=== PATIENT | male | born 1955 | race Caucasian/White ===

== ENCOUNTER → 2018-06-29 10:35 | Outpatient (CLI) | payer OTHER, SELFPAY ==
--- NOTE | 2014-05-09 | IMM_PTH ---
PATIENT: OSWALD GARCIA Sr. LOC: [facility] U#:[id number] AGE/SX: 69/M ROOM: RE06/29/[address]: Dr. Fernando Pandey DO : 1955 BED: DIS: SPEC #: [id number] RECD: 06/29/18 10:39 STATUS: NADER COLTEN #: [id number] DILMA: 05/09/14 00:[address]: Fernando Pandey DEPT: IMMUNOHISTOCHEMISTRY RECD BY: Annemarie Mata Tissues: E - PROSTATE LEFT Procedures: MLH-1 (add) MSH6 (add) Anti-PMS2 (add) MSH2 (initial) PHYSICIAN & INSTITUTION [place] [address] SPECIMEN INFORMATION: Tissue Source: E - Left prostate, mid, core biopsy Clinical Info: Elevated PSA Specimen Number: [id number] CPT code: 85917, 96668 x3 METHODOLOGY: Deparaffinized sections of prefer/formalin-fixed tissue or PAP/DQ stained slides are incubated with monoclonal/polyclonal antibodies/oligonucleotide probes. Localization is made via biotin free immunoperoxidase method. Appropriate controls are performed and reacted as expected. Results on target cell population are indicated in the following table: RESULTS: ANTIBODY / CLONE RESULT Block E MLH1 (M1) negative MSH2 (25D12) negative MSH6 (44) negative PMS2 (FSX4998) positive These tests were developed and their performance characteristics determined by [facility]. They may not have been cleared or approved by the U.S. Food and Drug Administration. The FDA has determined that such clearance or approval is not necessary. INTERPRETATION: E. Left prostate, mid, core biopsy: Invasive adenocarcinoma. Result of Microsatellite Instability Study: Positive (loss of mismatch protein; microsatellite instability detected). Complete loss of MLH1, MSH2 and MSH6. AM:magen 06/30/18
== END ==
PROVIDERS: Visit Provider Internal Medicine Hematology & Oncology
DX: C61 Malignant neoplasm of prostate (principal)
CPT/HCPCS: 88341; 88342

== ENCOUNTER 2018-07-20 17:45 | Inpatient (IN) | payer OTHER, SELFPAY ==
[2018-07-20 17:47] VITALS: BP 143/92; PULSE 87; RESP 14; TEMP 37.2; O2SAT 93; BMI 28.2
--- NOTE | 2018-07-20 18:51 | CT_ITS ---
STUDY: CT ABDOMEN AND PELVIS WITH CONTRAST REASON FOR EXAM: Male, 62 years old. Abdominal pain, prostate CA RADIATION DOSAGE (If Supplied By Facility): CTDIvol = ( 13.8 ) mGy, DLP = ( 839.69 ) mGycm TECHNIQUE: Transaxial images were obtained from the dome of the diaphragm to the symphysis pubis without oral contrast. 100 ml of Isovue 300 contrast was administered. Sagittal and coronal images were reconstructed. Individualized dose optimization techniques were used for this CT. COMPARISON: May 12, 2014. FINDINGS: The visualized lung bases demonstrate atelectasis and basilar scarring. Partially visualized prominent right hilum is noted. Correlate with CT of the chest if needed. The visualized portions of the heart are within normal limits. Numerous hypoattenuated lesions in the liver, most with interval enlargement up to 2.2 cm. Normal gallbladder and extrahepatic biliary system. Normal spleen. Normal pancreas. Normal bilateral adrenal glands. 8 mm right renal cyst. There is hydronephrosis of the right kidney with right proximal hydroureter. No obstructing stone is identified. There is right perinephric edema/stranding. Normal left kidney. Small hiatal hernia. Normal small intestine. Normal colon. The appendix is visualized and appears normal. Mildly calcified abdominal aorta. Normal inferior vena cava. Mild adenopathy in the retroperitoneum, slightly improved since the previous study. Slight wall thickening of the urinary bladder. Fatty density at the left inguinal canal. Normal abdominal wall. There are new sclerotic lesions of the vertebral column since the previous study requiring further evaluation. Metastasis cannot be excluded. CT/Abdomen/Pelvis W IV Cont ONLY IMPRESSION: Slightly larger hepatic lesions throughout the liver. There appear to be cystic in nature. Correlate with ultrasound if clinically indicated. Small hiatal hernia. Right hydronephrosis and proximal right hydroureter. There is right perinephric stranding/edema. No obstructing stone is noted. Mild wall thickening of the urinary bladder. Persistent retroperitoneal adenopathy, slightly improved since the previous study. Mild fatty density at the left ankle canal. Partially visualized right hilum appears to be slightly prominent. Correlate with CT of the chest if needed. New sclerotic vertebral lesions requiring further evaluation. Metastatic disease cannot be excluded. Electronically Signed: Alberto Fernando DO at 20:18 EDT Tel [phone], Service support ,
--- NOTE | 2018-07-20 18:53 | ED.DCSUM_ITS ---
- ER Visit Summary Date of Service: 07/20/18 Chief Complaint: Abdominal pain nausea and vomiting History of Present Illness: The patient is a 62 M increasing lower abdominal pain for 2 days. Started on lower, nausea and vomiting. Unable to hold down fluids. No flatus for 2 days. No abdominal surgery history. History of prostate cancer with metastasis to the hip diagnosed 4 years ago followed by Dr. Pandey. He was seen today in the office, I did receive report. Per Dr. Pandey no chemo for the past 6-8 weeks. He restarted immunotherapy today in the office. Is given IV fluids. He had a nonsurgical belly, he is sent for outpatient abdominal series reports positive stools and questionable ileus. He is told to do an enema and mag citrate however is unable to keep it down. Therefore sent to the ED. No urinary symptoms. Physical Examination: General: Alert and oriented ?3, no acute distress HEENT: Normocephalic, atraumatic. Dry mucosa membranes Neck: supple, nontender. Cardiovascular: Regular rate and rhythm, no murmurs Respiratory: Normal breath sounds, symmetric, no distress Abdomen: Mild distention, generalized tenderness with no rebound. Hypoactive bowel sounds. Extremities: Nontender, no edema, pulses intact ?4 Neuro: no focal neurological deficits. Test Results: CBC 9.5. Hemoglobin 12. Creatinine 1.02. Potassium 3.5. Lipase 91. Liver enzymes normal. UA pending. Lactic acid 2.8. Urine culture pending. CT abdomen pelvis IV contrast right side hydro-nephrosis and ureter with perinephric stranding. There is no findings of obstruction. Thickened bladder. There is enlarged hepatic lesions. New vertebral lesions. Emergency Department Course and Treatment: Patient uncomfortable vitals stable. Treated Dilaudid Zofran and fluids. Symptoms much more improved. Workup with abdominal labs normal. CT scan notes right-sided hydronephrosis with stranding. There is no obstructive findings there is thickening bladder. Stranding cover him with Zosyn. Urine is pending. His tongue oral fluids. Also findings of new large hepatic lesion and vertebral lesions. He has prostate cancer metastasis. Known to Dr. Pandey, he is updated we will see the patient in the hospital. Discussed with hospitalist for admission. Treatment Plan: [] Disposition: Admission Impression: 1. Abdominal pain 2. Hydronephrosis with stranding 3. Prostate cancer with metastases This note was generated with [employer] dictation software. It may contain incorrect words, spelling, and punctuation that were not noted in review of the chart prior to signing ED Disposition - Plan for ED Patient: Disposition: Acute Care [facility] Chief Complaint: Constipation Diagnosis: Abdominal pain, Right perinephric stranding, Hydronephrosis, right, Prostate cancer with metastasis Referrals: [facility] Doctor,Out of [NON-STAFF] -
[2018-07-20] MEDS: Ondansetron 4 MG/2 ML Vial IV (19:05)
[2018-07-20] MEDS: HYDROmorphone 1 MG/ML Syringe IV (19:05)
[2018-07-20] MEDS: 0.9% Normal Saline 1,000 ML 1000 ML IV (19:05)
[2018-07-20 19:07] LABS: Absolute Lymphocyte Count 1.24 X10^3/ul (0.83-4.51); Absolute Neutrophil Count 7.4 X10^3/uL (2.0-7.7); Basophil# 0.02 X10^3/uL; Basophil% 0.2 % (0-1); Eosinophil# 0.02 X10^3/uL; Eosinophils% 0.2 % (0-5); Hematocrit 37.3 % (40-54); Hemoglobin 12.2 g/dl (13.0-16.5); Lymphocyte # 1.24 X10^3/ul (4.0); Lymphocyte % 13.1 % (19-41); Mean Corp Hgb Conc 32.7 g/gl (32-36); Mean Corpuscular Hgb 32.4 pg (27.0-32.0); Mean Corpuscular Volume 99.2 fL (80-94); Mean Platelet Vol. 10.2 fl (6.2-12.0); Monocyte# 0.78 X10^3/uL; Monocyte% 8.2 % (0-10); Neutrophil # 7.42 X10^3/uL (2.7-7.7); Neutrophil % 78.2 % (47-70); Platelet Count 374 K/mm3 (150-450); RBC Distribution Width CV 13.1 % (11.6-14.6); RBC Distribution Width SD 47.6 fl (35.1-43.9); Red Blood Count 3.76 M/mm3 (4.6-6.2); White Blood Count 9.5 K/mm3 (4.4-11.0)
[2018-07-20 19:08] LABS: POSITIVE COUNT NO; POSITIVE DIFFERENTIAL NO; POSITIVE MORPHOLOGY NO
[2018-07-20 19:10] LABS: International Normalized Ratio 1.1; Prothrombin Time (Protime)PT. 14.3 SECONDS (11.7-14.9)
[2018-07-20 19:11] LABS: Partial Thromboplast Time 36.1 Seconds (24.1-36.2)
[2018-07-20 19:20] LABS: ALB/GLOB Ratio 0.9 RATIO (0.9-2.4); AST(SGOT) 12 U/L (15-37); Alanine Aminotransfer ALT/SGPT 18 U/L (16-61); Albumin, Serum 3.5 g/dL (3.2-5.0); Alkaline Phosphatase 210 U/L (45-117); Anion Gap 9 (5-15); BUN 6 mg/dL (7-18); BUN/Creat Ratio 5.9 RATIO (10-20); Calcium,Total 8.3 mg/dL (8.5-10.1); Chloride 110 mmol/L (98-107); Creatinine, Serum 1.02 mg/dL (0.70-1.30); EST Glomerular Filtration Rate 79 mL/min (>60); Est Glom Filt Rate - Afr Amer 95 mL/min (>60); Estimated Creatinine Clearance 76.05 ml/min; Globulin 3.8 g/dL (2.2-4.2); Glucose 112 mg/dL (74-106); Lipase 91 U/L (73-393); Potassium 3.5 mmol/L (3.5-5.1); Protein, Total 7.3 g/dL (6.4-8.2); Sodium Level 143 mmol/L (136-145)
[2018-07-20 19:23] LABS: Lactic Acid 0.8 mmol/L (0.4-2.0)
[2018-07-20 20:18] VITALS: BP 145/77; PULSE 87; RESP 17; RESP 18; O2SAT 83; O2SAT 95
--- NOTE | 2018-07-20 21:17 | PCM.HP.STD ---
Problem List (1) Abdominal pain Status: Acute (2) Hydronephrosis, right Status: Acute History of Present Illness Date of Admission: 07/20/18 Chief Complaint: Constipation The patient is a 62 year old M with a significant history of prostate cancer with metastatic to his right hip who presented with a 3-day history of constipation. In the past patient had chemotherapy for his prostate cancer. His last chemo was in May of this year. Also he completed 5 rounds of radiation. His last radiation was in June. Patient was started on immunotherapy (Keytruda) on the day of admission (07/20/2018). The plan is for Keytruda every [address] Pandey and reported constipation. Radiograph of his abdomen outpatient showed a questionable ileus. Patient was given enema and mag citrate. However he was unable to keep anything down. Associated with symptoms is abdominal pain, nausea and vomiting. He rates his abdominal pain as 10 out of 10. His symptoms has been worsening. At emergency department CT of his abdomen and pelvis showed hepatic lesions throughout the liver; right hydronephrosis; proximal right hydroureter; and perinephric stranding or edema; and mild wall thickening of the urinary bladder; as well as new sclerotic vertebral lesions. Metastatic disease could not be excluded. Past Medical History Allergies aspirin Adverse Reaction (Verified 07/20/18 17:52) Upset Stomach Home Medications: Ambulatory Orders Medication Instructions Recorded Lidocaine/Prilocaine 1 oint TOPICAL PRN PRN 11/30/14 [Lidocaine-Prilocaine Cream] Ondansetron [Zofran Odt] 8 mg PO Q8H PRN PRN 11/30/14 Desloratadine/Pseudoephedrine 1 each PO DAILY 07/20/18 [Clarinex-D 12 Hour Tablet] Ergocalciferol (Vitamin D2) 50,000 unit PO QWEEK 07/20/18 [Drisdol] Ferrous Sulfate [Iron] 325 mg PO BID 07/20/18 Furosemide [Lasix] 20 mg PO DAILY 07/20/18 Leuprolide Acetate [Eligard] 22.5 mg SQ UD 07/20/18 Olanzapine 10 mg PO QHS 07/20/18 Paroxetine HCl 10 mg PO DAILY 07/20/18 Pembrolizumab [Keytruda] 100 mg IV UD 07/20/18 Prednisone 5 mg PO DAILY 07/20/18 Surgical History: - - Port-A-Cath placement. Lives: Spouse/ Significant Other Smoking Status: Current every day smoker Tobacco Use: Cigarettes Alcohol: None - *Family History Paternal Family History: Family History (Last Updated 07/21/18 @ 03:52 by Rob Caldwell MD) Father Prostate CA Mother CVA (cerebral vascular accident) Review of Systems Constitutional: Denies: Chills, Fever, Weakness Eyes: Denies: Blurred vision, Pain HEENT: Denies: Head Aches, Sinus Congestion, Sinus Drainage Cardiovascular: Denies: Chest Pain, Palpitations Respiratory: Denies: Cough, Shortness of breath at rest, Sputum production Gastrointestinal: Reports: Abdominal Pain, Constipation, Nausea, Vomiting Genitourinary: Denies: Dysuria Musculoskeletal: Denies: Joint Pain, Joint Tenderness Skin: Denies: Rash, Wounds Neurological: Denies: Numbness, Tingling, Focal weakness Psychiatric: Denies: Anxiety, Depression, Homicidal Ideations, Suicidal Ideations Hematologic/ Lymphatic: Denies: Easy Bruising, Easy Bleeding VTE Information - Inpt Only VTE Present on Admission: No VTE Mechan Device Prophylaxis: None VTE Pharm Prophylaxis ordered?: Yes Patient Problems: Active and Suspected Problems Abdominal pain (Acute) Hydronephrosis, right (Acute) - Physical Exam General: Alert, Oriented x3, Cooperative HEENT: Atraumatic, PERRLA, EOMI, Normocephalic Neck: Supple, No JVD, Negative Carotid Bruits Lungs: Clear to auscultation, Normal air movement Cardiovascular: Regular rate, No murmurs Abdomen: Bowel Sounds Present, Soft, Tender Extremities: No edema, Capillary Refill Less than 3 Seconds Skin: No rashes, No breakdown Musculoskeletal: No Tenderness to Palpation of Joints or Extremities Neurological: Cranial nerves II-XII grossly intact Psych/Mental Status: Normal Affect, Appropriate Vital Signs Temp Pulse Resp BP Pulse Ox 98.9 F 87 17 145/77 H 95 07/20/18 17:47 07/20/18 20:18 07/20/18 20:18 07/20/18 20:18 07/20/18 20:18 Oxygen Flow Rate (L/min) 4 Oxygen Delivery Method Nasal Cannula Weight: 86.636 kg Body Mass Index (BMI) 28.2 Laboratory Tests Past 24 Hrs 10/07/20/18 07/20/18 18:34 18:34 18:34 WBC 9.5 RBC 3.76 L Hgb 12.2 L Hct 37.3 L MCV 99.2 H MCH 32.4 H MCHC 32.7 RDW 13.1 RDW Differential 47.6 H Plt Count 374 MPV 10.2 Immature Gran % (Auto) 0.100 Neut % (Auto) 78.2 H Lymph % (Auto) 13.1 L [place] % (Auto) 8.2 Eos % (Auto) 0.2 Baso % (Auto) 0.2 Absolute Neuts (auto) 7.4 Absolute Lymphs (auto) 1.24 Total Counted Not Reportable PT 14.3 INR 1.1 APTT 36.1 Sodium 143 Potassium 3.5 Chloride 110 H Carbon Dioxide 24.0 Anion Gap 9 BUN 6 L Creatinine 1.02 Estim Creat Clear Calc 76.05 Est GFR (MDRD) Af Amer 95 Est GFR (MDRD) Non-Af 79 BUN/Creatinine Ratio 5.9 L Glucose 112 H Lactic Acid Calcium 8.3 L Total Bilirubin 0.40 AST 12 L ALT 18 Alkaline Phosphatase 210 H Total Protein 7.3 Albumin 3.5 Globulin 3.8 Albumin/Globulin Ratio 0.9 Lipase 91 07/20/18 18:34 WBC RBC Hgb Hct MCV MCH MCHC RDW RDW Differential Plt Count MPV Immature Gran % (Auto) Neut % (Auto) Lymph % (Auto) [place] % (Auto) Eos % (Auto) Baso % (Auto) Absolute Neuts (auto) Absolute Lymphs (auto) Total Counted PT INR APTT Sodium Potassium Chloride Carbon Dioxide Anion Gap BUN Creatinine Estim Creat Clear Calc Est GFR (MDRD) Af Amer Est GFR (MDRD) Non-Af BUN/Creatinine Ratio Glucose Lactic Acid 0.8 Calcium Total Bilirubin AST ALT Alkaline Phosphatase Total Protein Albumin Globulin Albumin/Globulin Ratio Lipase Assessment/Plan All Active Problems Abdominal pain (Acute) Hydronephrosis, right (Acute) The patient is a 62 year old M with a significant history of prostate cancer with metastatic to his right hip who was started on Keytruda today presenting with constipation nausea and vomiting and found to have radiographic evidence of hepatic lesions throughout the liver; right hydronephrosis; proximal right hydroureter; and perinephric stranding or edema; and mild wall thickening of the urinary bladder; as well as new sclerotic vertebral lesions. Abdominal pain, nausea, vomiting vomiting and constipation. His abdominal symptoms is likely from metastatic prostate cancer disease obstructing his bowels. Soapsuds enema was productive for small stool. Senokot?S ordered. Bentyl as needed ordered. Supportive treatment with Dilaudid and Zofran. Received Zosyn at emergency department because of perinephric stranding of the right kidney. Antibiotics not continued at this time. No reported fever, chills; leukocytosis; negative leukocyte esterase, negative nitrite and no bacteria seen in urinalysis. Urine cultures are pending. Urology consulted for hydronephrosis; hydroureter and bladder wall thickening. Oncology consulted for metastatic prostate cancer disease. Trend CBC Right hydronephrosis; proximal right hydroureter and bladder wall thickening Urology consulted as above. Pain management as above. Metastatic prostate cancer Patient is a known patient of Dr. Pandey. Dr. Pandey consulted. Patient took prednisone at home which was continued. While patient's stated that prednisone is part of his regimen for his metastatic prostate cancer; his stated that prednisone was started because he had infection (?pneumonia). Prednisone 5 mg daily continue. Please clarify with oncologist. Patient takes Leuprolide every 3 months. Not due at this time. Elevated blood pressure without diagnosis of hypertension. Blood pressure on admission was still within goal. However patient denies any history of high blood pressure. Trend blood pressures. Tobacco abuse Counselled Nicotine patch ordered Inpatient consult smoking cessation. Depression Paxil continued. DVT prophylaxis Subcutaneous Lovenox Code Visit Inpatient E&M: 90308 Init Hosp L3
--- NOTE | 2018-07-20 22:01 | ED.RN ---
ROCAEL DELAYED DUE TO NEED FOR URINE. PT UNABLE TO INITALLY GO. UA AND CULTURE SENT TO LAB. Sawyer GOOD RN
[2018-07-20 22:04] LABS: Bacteria 0 SEEN /hpf (None Seen); Mucous, Urine 0 SEEN /hpf (<or=2+)
[2018-07-20 22:06] LABS: Color, Urine Yellow (Yellow); Glucose, Dipstick Normal (Normal); Ketone-Dipstick 5 mg/dl (Negative); Leukocyte Esterase-Dipstick Negative /ul (Negative); Nitrite-Dipstick Negative (Negative); Occult Blood-Urine 10 /ul (Negative); Protein-Dipstick 15 mg/dl (Negative); Specific Gravity, Urine 1.015 (1.002-1.030); Urine Bilirubin Dipstick Negative (Negative); Urine Clarity Clear (Clear); Urine Urobilinogen Normal (Normal)
[2018-07-20] MEDS: Piperacil/Tazobactam 3.375 GM/50 ML ML IV (22:13)
[2018-07-20 22:15] LABS: Red Blood Cells-Urine 0-5 SEEN /hpf (0-5); White Blood Cells 0-5 SEEN /hpf (0-5)
[2018-07-20 22:16] LABS: Squamous Epithelial Cells - UA 0-5 SEEN /hpf (0-5)
[2018-07-20 22:37] VITALS: BMI 28.1; BMI 28.2
[2018-07-20 23:01] VITALS: BP 130/71; PULSE 75; RESP 16; TEMP 37.4; O2SAT 100
[2018-07-20 23:55] VITALS: PULSE 75; RESP 16; O2SAT 100
[2018-07-21] VITALS (7 sets, daily range): BP systolic 137–146; BP diastolic 74–86; PULSE 70–90; RESP 16–18; TEMP 36.8–37.1; O2SAT 65–97
[2018-07-21] MEDS: Magnesium Hydroxide 30 ML UDC PO (02:21)
[2018-07-21] MEDS: HYDROmorphone 1 MG/ML Syringe IV ×4 (02:21→19:12)
[2018-07-21] MEDS: Dicyclomine 10 MG Capsule PO ×3 (04:36→15:03)
[2018-07-21] MEDS: Ferrous Sulfate 325 MG Tablet PO ×2 (07:50→18:22)
[2018-07-21] MEDS: predniSONE 5 MG Tablet PO (07:50)
[2018-07-21] MEDS: Enoxaparin 40 MG/0.4 ML Syringe SC (07:51)
[2018-07-21] MEDS: Senna/Docusate Sodium 1 Tablet 2 TABLET PO ×2 (07:56→22:38)
[2018-07-21] MEDS: PARoxetine 10 MG Tablet PO (07:56)
--- NOTE | 2018-07-21 08:27 | PCM.CONS.B ---
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 Was found to have an elevated PSA to 79 ng/mL. ? Was referred to Dr. Laguerre and underwent biopsy 05/09/2014. ? Pathology--six cores taken; five had adenocarcinoma with Sav score ranging 7-10. ? CT A/P 05/12/2014--Innumerable hypodensities in liver too small to characterize. RP adenopathy with largest node up to 4 cm. Pathologically enlarged lymph nodes along bilateral iliac chains. ? Bone scan 05/12/2014--increased conscentration b/l ribs, right posterior ilium, left iliac wing and right posterior sacrum-ala. ? He was asymptomatic. ? Previous therapy: 1) Taxotere x6 in addition to GnRH therapy. Completed Taxotere 11/03/2014. 2) Xtandi. 01/2016 through 07/28/2016. Stopped due to significant migraine HAs. 3) Zytiga/prednisone. 11/23/2016 through 03/2018. 4) Cabazitexel. 5) Palliative radiation to the right hip. ? Current therapy: 1) Mireya (receiving at urologist's office q 3 months). Continue on prednisone 5 mg a day. He developed nausea and vomiting on Thursday. He had vomiting with nearly all liquids he tried to consume. No fever. This was associated with abdominal cramping. Bowels hadn't moved on Thursday. He was seen in the office yesterday urgently. Acute abdominal series showed some dilated loops small bowel suggestive of potential ileus with an abundant amount of stool in the colon. No evidence of SBO. Patient received hydration and then his first dose of Keytruda. He was instructed to try magnesium citrate and an enema which he did yesterday afternoon. He couldn't keep the magnesium citrate down and his brought him to the ER. Abdominopelvic CT scan revealed mild right hydroureter with associated perinephric stranding on the right side. There was no evidence of bowel obstruction. All metastases were observed but this was compared to a CT scan done 2013. Patient has known progression since then. UA was unremarkable. He received antibiotics and was started on IV hydration and admitted. Last night he received a soapsuds enema and he said he had a bowel movement following that. He still having significant cramping but no nausea or vomiting yet this morning. However he is only tried sips of water thus far. No fever. Allergies aspirin Adverse Reaction (Verified 07/20/18 17:52) Upset Stomach Current Medications Dicyclomine HCl (Bentyl) 10 mg PO TIDAC [facility] Last Admin: 07/21/18 04:49 Dose: Not Given Enoxaparin Sodium (Lovenox) 40 mg SC DAILY@1000 [facility] Last Admin: 07/21/18 07:51 Dose: 40 mg Ferrous Sulf[facility]) [facility] Last Admin: 07/21/18 07:50 Dose: 325 mg Heparin Sodium (Beef Lung) () 50 units IV UD PRN PRN Reason: HEPARIN FLUSH Hydromorphone HCl (Dilaudid Inj) 1 mg IV Q3H PRN PRN PRN Reason: SEVERE PAIN () Last Admin: 07/21/18 07:33 Dose: 1 mg Sodium Chloride () 250 mls @ 15 mls/hr IV .[id number] PRN PRN Reason: SALINE FLUSH Sodium Chloride () 1,000 mls @ 75 mls/hr IV .[id number] [facility] Stop: 07/21/18 22:19 Magnesium Hydroxide (Milk Of Magnesia) 30 ml PO DAILY PRN PRN PRN Reason: Constipation Last Admin: 07/21/18 02:21 Dose: 30 ml Nicotine (Nicoderm Cq (Pbkc)) 14 mg TRANSDERM. DAILY [facility] Nutritional Formula (Lactose Free) (Ensure Enlive) 120 ml PO 4X/DAY [facility] Olanzapine (Zyprexa) 10 mg PO QHS [facility] Ondansetron HCl (Zofran) 4 mg IV Q6H PRN PRN PRN Reason: NAUSEA/VOMITING Paroxetine HCl (Paxil) 10 mg PO DAILY [facility] Last Admin: 07/21/18 07:56 Dose: 10 mg Prednisone () [facility] Last Admin: 07/21/18 07:50 Dose: 5 mg Senna/Docusate Sodium (Senokot-S, Zuri-Colace) 2 tablet PO BID [facility] Last Admin: 07/21/18 07:56 Dose: 2 tablet Sodium Chloride () 10 ml IV UD PRN PRN Reason: VAD FLUSH ROS: Neuro: Denies MONTERROSO, vertigo, dizziness and imbalance. HEENT: No recent change in voice, vision or hearing. Resp: Denies cough, wheeze and hemoptysis. Denies shortness of breath at rest. CVS: Denies exertional chest pain, PND, orthopnea.. GI: See above. : Denies dysuria or gross hematuria. Endo: +hot flashes. Denies polyuria and polydipsia. Denies heat and cold intolerance. Musculoskeletal: pain in right groin when first standing to walk. Derm: Denies rash. Denies jaundice and diffuse pruritis. Heme: Denies unusual bleeding and unexplained bruising. Psych: Stable mood. PHYSICAL EXAM: Vitals: Vital Signs Temp 98.7 F 07/21/18 04:35 Pulse 70 07/21/18 04:53 Resp 18 07/21/18 04:53 BP 138/74 H 07/21/18 04:35 Pulse Ox 95 07/21/18 07:33 Intake & Output 07/19/18 07/20/18 07/21/18 23:59 23:59 23:59 Intake Total 783 / 783 Balance 783 / 783 Weight: 86.5 kg Intake: Oral 250 / 250 IV fluid/meds 533 / 533 Well-appearing and in no acute distress. EYES: Sclerae are anicteric bilaterally. NECK: Supple. LYMPHATIC: There is no palpable cervical, supraclavicular adenopathy. RESPIRATORY: Inspiratory breath sounds are of normal intensity in all schmitz. No rales, wheezes or rhonchi. CARDIOVASCULAR: Rhythm is regular. Normal intensity S1/S2. ABDOMEN: abdomen slightly distended and there is tympany to percussion. No fluid wave. Diffuse generalized tenderness. SKIN: No rash. Laboratory Results - last 24 hr 07/20/18 07/20/18 07/20/18 18:34 18:34 18:34 WBC 9.5 RBC 3.76 L Hgb 12.2 L Hct 37.3 L MCV 99.2 H MCH 32.4 H MCHC 32.7 RDW 13.1 RDW Differential 47.6 H Plt Count 374 MPV 10.2 Immature Gran % (Auto) 0.100 Neut % (Auto) 78.2 H Lymph % (Auto) 13.1 L [place] % (Auto) 8.2 Eos % (Auto) 0.2 Baso % (Auto) 0.2 Absolute Neuts (auto) 7.4 Absolute Lymphs (auto) 1.24 Total Counted Not Reportable PT 14.3 INR 1.1 APTT 36.1 Sodium 143 Potassium 3.5 Chloride 110 H Carbon Dioxide 24.0 Anion Gap 9 BUN 6 L Creatinine 1.02 Estim Creat Clear Calc 76.05 Est GFR (MDRD) Af Amer 95 Est GFR (MDRD) Non-Af 79 BUN/Creatinine Ratio 5.9 L Glucose 112 H Lactic Acid Calcium 8.3 L Total Bilirubin 0.40 AST 12 L ALT 18 Alkaline Phosphatase 210 H Total Protein 7.3 Albumin 3.5 Globulin 3.8 Albumin/Globulin Ratio 0.9 Lipase 91 Urine Color Urine Clarity Urine pH Ur Specific [place] Urine Protein Urine Glucose (UA) Urine Ketones Urine Occult Blood Urine Nitrite Urine Bilirubin Urine Urobilinogen Ur Leukocyte Esterase Urine RBC Urine WBC Ur Squamous Epith Cells Urine Bacteria Urine Mucus 07/20/18 07/20/18 18:34 22:00 WBC RBC Hgb Hct MCV MCH MCHC RDW RDW Differential Plt Count MPV Immature Gran % (Auto) Neut % (Auto) Lymph % (Auto) [place] % (Auto) Eos % (Auto) Baso % (Auto) Absolute Neuts (auto) Absolute Lymphs (auto) Total Counted PT INR APTT Sodium Potassium Chloride Carbon Dioxide Anion Gap BUN Creatinine Estim Creat Clear Calc Est GFR (MDRD) Af Amer Est GFR (MDRD) Non-Af BUN/Creatinine Ratio Glucose Lactic Acid 0.8 Calcium Total Bilirubin AST ALT Alkaline Phosphatase Total Protein Albumin Globulin Albumin/Globulin Ratio Lipase Urine Color Yellow Urine Clarity Clear Urine pH 5.0 Ur Specific [place] 1.015 Urine Protein 15 H Urine Glucose (UA) Normal Urine Ketones 5 H Urine Occult Blood 10 H Urine Nitrite Negative Urine Bilirubin Negative Urine Urobilinogen Normal Ur Leukocyte Esterase Negative Urine RBC 0-5 SEEN Urine WBC 0-5 SEEN Ur Squamous Epith Cells 0-5 SEEN Urine Bacteria 0 SEEN Urine Mucus 0 SEEN ASSESSMENT/PLAN: 1) nausea vomiting associated with abdominal cramping. Assessment: -No clinical or radiographic findings to suggest bowel obstruction. -Gastric wall may appear slightly thickened on CT scan. -Plain films revealed quite a bit of stool -etiologic considerations include nonspecific viral gastroenteritis or possible gastritis/peptic ulcer disease. Plan: -Proton pump inhibitor. -Continue Bentyl for cramping. -If no bowel movement by later this afternoon after receiving milk of magnesia earlier this morning along with Senokot and magnesium citrate. -IV hydration. -I encouraged ambulation. 2) Mild right-sided hydronephrosis with perinephric standing. Assessment: -New when compared to CT scan done on 05/21/2018. -Absence of fever, elevated white count and unremarkable UA do not suggest pyelonephritis. -Nothing on CT scan to suggest obstructing stone although there remains a possibility. -Creatinine normal. Plan: -Agree with urology assessment since this is a new finding. May require stent. 3) Castrate resistant metastatic prostate cancer. Assessment: -He has widespread metastatic disease including lymph nodes, bone and liver. -Mismatch repair testing revealed deficient state. This made him a candidate for immunotherapy. Plan: -He will continue every 3 week pembrolizumab in the outpatient setting.
--- NOTE | 2018-07-21 08:31 | CON.PCM_ITS ---
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 Was found to have an elevated PSA to 79 ng/mL. ? Was referred to Dr. Laguerre and underwent biopsy 05/09/2014. ? Pathology--six cores taken; five had adenocarcinoma with Sav score ranging 7-10. ? CT A/P 05/12/2014--Innumerable hypodensities in liver too small to characterize. RP adenopathy with largest node up to 4 cm. Pathologically enlarged lymph nodes along bilateral iliac chains. ? Bone scan 05/12/2014--increased conscentration b/l ribs, right posterior ilium, left iliac wing and right posterior sacrum-ala. ? He was asymptomatic. ? Previous therapy: 1) Taxotere x6 in addition to GnRH therapy. Completed Taxotere 11/03/2014. 2) Xtandi. 01/2016 through 07/28/2016. Stopped due to significant migraine HAs. 3) Zytiga/prednisone. 11/23/2016 through 03/2018. 4) Cabazitexel. 5) Palliative radiation to the right hip. ? Current therapy: 1) Mireya (receiving at urologist's office q 3 months). Continue on prednisone 5 mg a day. He developed nausea and vomiting on Thursday. He had vomiting with nearly all liquids he tried to consume. No fever. This was associated with abdominal cramping. Bowels hadn't moved on Thursday. He was seen in the office yesterday urgently. Acute abdominal series showed some dilated loops small bowel sugg estive of potential ileus with an abundant amount of stool in the colon. No evidence of SBO. Patient received hydration and then his first dose of Keytruda. He was instructed to try magnesium citrate and an enema which he did yesterday afternoon. He couldn't keep the magnesium citrate down and his brought him to the ER. Abdominopelvic CT scan revealed mild right hydroureter with associated perinephric stranding on the right side. There was no evidence of bowel obstruction. All metastases were observed but this was compared to a CT scan done 2013. Patient has known progression since then. UA was unremarkable. He received antibiotics and was started on IV hydration and admitted. Last night he received a soapsuds enema and he said he had a bowel movement following that. He still having significant cramping but no nausea or vomiting yet this morning. However he is only tried sips of water thus far. No fever. Allergies aspirin Adverse Reaction (Verified 07/20/18 17:52) Upset Stomach Current Medications Dicyclomine HCl (Bentyl) 10 mg PO TIDAC [facility] Last Admin: 07/21/18 04:49 Dose: Not Given Enoxaparin Sodium (Lovenox) 40 mg SC DAILY@1000 [facility] Last Admin: 07/21/18 07:51 Dose: 40 mg [facility]ous Sulfate [facility]) [facility] Last Admin: 07/21/18 07:50 Dose: 325 mg Heparin Sodium (Beef Lung) () 50 units IV UD PRN PRN Reason: HEPARIN FLUSH Hydromorphone HCl (Dilaudid Inj) 1 mg IV Q3H PRN PRN PRN Reason: SEVERE PAIN (-07/14) Last Admin: 07/21/18 07:33 Dose: 1 mg Sodium Chloride () 250 mls @ 15 mls/hr IV .[id number] PRN PRN Reason: SALINE FLUSH Sodium Chloride () 1,000 mls @ 75 mls/hr IV .[id number] [facility] Stop: 07/21/18 22:19 Magnesium Hydroxide (Milk Of Magnesia) 30 ml PO DAILY PRN PRN PRN Reason: Constipation Last Admin: 07/21/18 02:21 Dose: 30 ml Nicotine (Nicoderm Cq (Pbkc)) 14 mg TRANSDERM. DAILY [facility] Nutritional Formula (Lactose Free) (Ensure Enlive) 120 ml PO 4X/DAY [facility] Olanzapine (Zyprexa) 10 mg PO QHS [facility] Ondansetron HCl (Zofran) 4 mg IV Q6H PRN PRN PRN Reason: NAUSEA/VOMITING Paroxetine HCl (Paxil) 10 mg PO DAILY [facility] Last Admin: 07/21/18 07:56 Dose: 10 mg Prednisone () [facility] Last Admin: 07/21/18 07:50 Dose: 5 mg Senna/Docusate Sodium (Senokot-S, Zuri-Colace) 2 tablet PO BID [facility] Last Admin: 07/21/18 07:56 Dose: 2 tablet Sodium Chloride () 10 ml IV UD PRN PRN Reason: VAD FLUSH ROS: Neuro: Denies MONTERROSO, vertigo, dizziness and imbalance. HEENT: No recent change in voice, vision or hearing. Resp: Denies cough, wheeze and hemoptysis. Denies shortness of breath at rest. CVS: Denies exertional chest pain, PND, orthopnea.. GI: See above. : Denies dysuria or gross hematuria. Endo: +hot flashes. Denies polyuria and polydipsia. Denies heat and cold intolerance. Musculoskeletal: pain in right groin when first standing to walk. Derm: Denies rash. Denies jaundice and diffuse pruritis. Heme: Denies unusual bleeding and unexplained bruising. Psych: Stable mood. PHYSICAL EXAM: Vitals: Vital Signs Temp 98.7 F 07/21/18 04:35 Pulse 70 07/21/18 04:53 Resp 18 07/21/18 04:53 BP 138/74 H 07/21/18 04:35 Pulse Ox 95 07/21/18 07:33 Intake & Output 07/19/18 07/20/18 07/21/18 23:59 23:59 23:59 Intake Total 783 / 783 Balance 783 / 783 Weight: 86.5 kg Intake: Oral 250 / 250 IV fluid/meds 533 / 533 Well-appearing and in no acute distress. EYES: Sclerae are anicteric bilaterally. NECK: Supple. LYMPHATIC: There is no palpable cervical, supraclavicular adenopathy. RESPIRATORY: Inspiratory breath sounds are of normal intensity in all schmitz. No rales, wheezes or rhonchi. CARDIOVASCULAR: Rhythm is regular. Normal intensity S1/S2. ABDOMEN: abdomen slightly distended and there is tympany to percussion. No fluid wave. Diffuse generalized tenderness. SKIN: No rash. Laboratory Results - last 24 hr 07/20/18 07/20/18 07/20/18 18:34 18:34 18:34 WBC 9.5 RBC 3.76 L Hgb 12.2 L Hct 37.3 L MCV 99.2 H MCH 32.4 H MCHC 32.7 RDW 13.1 RDW Differential 47.6 H Plt Count 374 MPV 10.2 Immature Gran % (Auto) 0.100 Neut % (Auto) 78.2 H Lymph % (Auto) 13.1 L [place] % (Auto) 8.2 Eos % (Auto) 0.2 Baso % (Auto) 0.2 Absolute Neuts (auto) 7.4 Absolute Lymphs (auto) 1.24 Total Counted Not Reportable PT 14.3 INR 1.1 APTT 36.1 Sodium 143 Potassium 3.5 Chloride 110 H Carbon Dioxide 24.0 Anion Gap 9 BUN 6 L Creatinine 1.02 Estim Creat Clear Calc 76.05 Est GFR (MDRD) Af Amer 95 Est GFR (MDRD) Non-Af 79 BUN/Creatinine Ratio 5.9 L Glucose 112 H Lactic Acid Calcium 8.3 L Total Bilirubin 0.40 AST 12 L ALT 18 Alkaline Phosphatase 210 H Total Protein 7.3 Albumin 3.5 Globulin 3.8 Albumin/Globulin Ratio 0.9 Lipase 91 Urine Color Urine Clarity Urine pH Ur Specific [place] Urine Protein Urine Glucose (UA) Urine Ketones Urine Occult Blood Urine Nitrite Urine Bilirubin Urine Urobilinogen Ur Leukocyte Esterase Urine RBC Urine WBC Ur Squamous Epith Cells Urine Bacteria Urine Mucus 07/20/18 07/20/18 18:34 22:00 WBC RBC Hgb Hct MCV MCH MCHC RDW RDW Differential Plt Count MPV Immature Gran % (Auto) Neut % (Auto) Lymph % (Auto) [place] % (Auto) Eos % (Auto) Baso % (Auto) Absolute Neuts (auto) Absolute Lymphs (auto) Total Counted PT INR APTT Sodium Potassium Chloride Carbon Dioxide Anion Gap BUN Creatinine Estim Creat Clear Calc Est GFR (MDRD) Af Amer Est GFR (MDRD) Non-Af BUN/Creatinine Ratio Glucose Lactic Acid 0.8 Calcium Total Bilirubin AST ALT Alkaline Phosphatase Total Protein Albumin Globulin Albumin/Globulin Ratio Lipase Urine Color Yellow Urine Clarity Clear Urine pH 5.0 Ur Specific [place] 1.015 Urine Protein 15 H Urine Glucose (UA) Normal Urine Ketones 5 H Urine Occult Blood 10 H Urine Nitrite Negative Urine Bilirubin Negative Urine Urobilinogen Normal Ur Leukocyte Esterase Negative Urine RBC 0-5 SEEN Urine WBC 0-5 SEEN Ur Squamous Epith Cells 0-5 SEEN Urine Bacteria 0 SEEN Urine Mucus 0 SEEN ASSESSMENT/PLAN: 1) nausea vomiting associated with abdominal cramping. Assessment: -No clinical or radiographic findings to suggest bowel obstruction. -Gastric wall may appear slightly thickened on CT scan. -Plain films revealed quite a bit of stool -etiologic considerations include nonspecific viral gastroenteritis or possible gastritis/peptic ulcer disease. Plan: -Proton pump inhibitor. -Continue Bentyl for cramping. -If no bowel movement by later this afternoon after receiving milk of magnesia earlier this morning along with Senokot and magnesium citrate. -IV hydration. -I encouraged ambulation. 2) Mild right-sided hydronephrosis with perinephric standing. Assessment: -New when compared to CT scan done on 05/21/2018. -Absence of fever, elevated white count and unremarkable UA do not suggest pyelonephritis. -Nothing on CT scan to suggest obstructing stone although there remains a possibility. -Creatinine normal. Plan: -Agree with urology assessment since this is a new finding. May require stent. 3) Castrate resistant metastatic prostate cancer. Assessment: -He has widespread metastatic disease including lymph nodes, bone and liver. -Mismatch repair testing revealed deficient state. This made him a candidate for immunotherapy. Plan: -He will continue every 3 week pembrolizumab in the outpatient setting.
[2018-07-21 09:00] LABS: Absolute Lymphocyte Count 1.04 X10^3/ul (0.83-4.51); Absolute Neutrophil Count 7.1 X10^3/uL (2.0-7.7); Basophil# 0.01 X10^3/uL; Basophil% 0.1 % (0-1); Eosinophil# 0.06 X10^3/uL; Eosinophils% 0.7 % (0-5); Hematocrit 36.9 % (40-54); Lymphocyte # 1.04 X10^3/ul (4.0); Lymphocyte % 11.9 % (19-41); Mean Corp Hgb Conc 32.5 g/gl (32-36); Mean Corpuscular Hgb 32.8 pg (27.0-32.0); Mean Corpuscular Volume 100.8 fL (80-94); Mean Platelet Vol. 9.9 fl (6.2-12.0); Monocyte# 0.57 X10^3/uL; Monocyte% 6.5 % (0-10); Neutrophil # 7.07 X10^3/uL (2.7-7.7); Neutrophil % 80.7 % (47-70); Platelet Count 342 K/mm3 (150-450); RBC Distribution Width CV 13.1 % (11.6-14.6); RBC Distribution Width SD 47.8 fl (35.1-43.9); Red Blood Count 3.66 M/mm3 (4.6-6.2); White Blood Count 8.8 K/mm3 (4.4-11.0)
[2018-07-21 09:02] LABS: POSITIVE COUNT NO; POSITIVE DIFFERENTIAL NO; POSITIVE MORPHOLOGY NO
[2018-07-21 09:24] LABS: Anion Gap 6 (5-15); BUN 7 mg/dL (7-18); BUN/Creat Ratio 6.2 RATIO (10-20); Calcium,Total 7.6 mg/dL (8.5-10.1); Chloride 110 mmol/L (98-107); Creatinine, Serum 1.12 mg/dL (0.70-1.30); EST Glomerular Filtration Rate 71 mL/min (>60); Est Glom Filt Rate - Afr Amer 86 mL/min (>60); Estimated Creatinine Clearance 69.26 ml/min; Glucose 124 mg/dL (74-106); Potassium 3.3 mmol/L (3.5-5.1); Sodium Level 143 mmol/L (136-145)
--- NOTE | 2018-07-21 10:00 | CASEMGMT ---
RN GASTON Face to Face with patient for initial transition planning/care coordination assessment. RN CM introduced self and role at [facility]. Patient lying in bed, alert and oriented, family at bedside. Patient willing to participate in assessment and is able to answer all questions appropriately. Care providers, pharmacy, and demographics verified. Patient wishes to discharge home, denies need for home health at this time. Patient states he has no further needs or concerns at this time. CM to follow for discharge planning needs that may arise. PCP: Trini Specialists: Dannie, oncologist; Shade, Urologist Preferred Pharmacy: [facility] Insurance: MMO Prescription Benefit: MMO Living Will/HPOA: Yes, copy provided. Rosalia Alejo is HPOA LNOK: Living Arrangements: Patient lives with in 2 story home. Independent at home Transportation: Self/ DME/HHC: Patient has cane. Denies need for HHC. Currently on Oxygen, will monitor for need at discharge. Disposition Plan: Patient to discharge home with family support and follow-up plans in place. Nicole COBURN, RN, CM
--- NOTE | 2018-07-21 11:19 | PCM.PN.HOSP ---
Patient Problems: Active and Suspected Problems Abdominal pain (Acute) Hydronephrosis, right (Acute) Subjective: Still with abdominal pain. Scant BMs. Abdominal distention. Vitals/I&O's: Vital Signs Temp Pulse Resp BP Pulse Ox 37.1 C 79 16 137/80 H 95 07/21/18 10:30 07/21/18 10:30 07/21/18 10:30 07/21/18 10:30 07/21/18 10:30 Oxygen Flow Rate (L/min) 2 Oxygen Delivery Method Nasal Cannula Weight: 86.5 kg Body Mass Index (BMI) 28.1 Intake and Output for Last 24 Hours 07/19/18 07/20/18 07/21/18 23:59 23:59 23:59 Intake Total 783 / 783 Balance 783 / 783 General: Alert, - - uncomfortable. HEENT: Atraumatic, Normocephalic Oral: Moist Mucosa, No Gingival or Mucosal Lesions/ Ulcerations Neck: No Nodes, Thyroid Normal Size and Texture Lungs: Clear to auscultation, Normal air movement, No rhonchi, No wheeze Cardiovascular: Regular rate, Regular Rhythm, Normal S1, Normal S2, No murmurs Abdomen: Bowel Sounds Present, Distended, Tender Extremities: No edema, No Calf Tenderness Skin: No rashes, No breakdown Psych/Mental Status: Normal Affect, Appropriate Laboratory Results 07/20/18 18:34: WBC 9.5, RBC 3.76 L, Hgb 12.2 L, Hct 37.3 L, MCV 99.2 H, MCH 32.4 H, MCHC 32.7, RDW 13.1, RDW Differential 47.6 H, Plt Count 374, MPV 10.2, Immature Gran % (Auto) 0.100, Neut % (Auto) 78.2 H, Lymph % (Auto) 13.1 L, [place] % (Auto) 8.2, Eos % (Auto) 0.2, Baso % (Auto) 0.2, Absolute Neuts (auto) 7.4, Absolute Lymphs (auto) 1.24, Total Counted Not Reportable 07/20/18 18:34: PT 14.3, INR 1.1, APTT 36.1 07/20/18 18:34: Sodium 143, Potassium 3.5, Chloride 110 H, Carbon Dioxide 24.0, Anion Gap 9, BUN 6 L, Creatinine 1.02, Estim Creat Clear Calc 76.05, Est GFR (MDRD) Af Amer 95, Est GFR (MDRD) Non-Af 79, BUN/Creatinine Ratio 5.9 L, Glucose 112 H, Calcium 8.3 L, Total Bilirubin 0.40, AST 12 L, ALT 18, Alkaline Phosphatase 210 H, Total Protein 7.3, Albumin 3.5, Globulin 3.8, Albumin/Globulin Ratio 0.9, Lipase 91 07/20/18 18:34: Lactic Acid 0.8 07/20/18 22:00: Urine Color Yellow, Urine Clarity Clear, Urine pH 5.0, Ur Specific [place] 1.015, Urine Protein 15 H, Urine Glucose (UA) Normal, Urine Ketones 5 H, Urine Occult Blood 10 H, Urine Nitrite Negative, Urine Bilirubin Negative, Urine Urobilinogen Normal, Ur Leukocyte Esterase Negative, Urine RBC 0-5 SEEN, Urine WBC 0-5 SEEN, Ur Squamous Epith Cells 0-5 SEEN, Urine Bacteria 0 SEEN, Urine Mucus 0 SEEN 07/21/18 08:43: Sodium 143, Potassium 3.3 L, Chloride 110 H, Carbon Dioxide 27.0, Anion Gap 6, BUN 7, Creatinine 1.12, Estim Creat Clear Calc 69.26, Est GFR (MDRD) Af Amer 86, Est GFR (MDRD) Non-Af 71, BUN/Creatinine Ratio 6.2 L, Glucose 124 H, Calcium 7.6 L 07/21/18 08:43: WBC 8.8, RBC 3.66 L, Hgb 12.0 L, Hct 36.9 L, MCV 100.8 H, MCH 32.8 H, MCHC 32.5, RDW 13.1, RDW Differential 47.8 H, Plt Count 342, MPV 9.9, Immature Gran % (Auto) 0.100, Neut % (Auto) 80.7 H, Lymph % (Auto) 11.9 L, [place] % (Auto) 6.5, Eos % (Auto) 0.7, Baso % (Auto) 0.1, Absolute Neuts (auto) 7.1, Absolute Lymphs (auto) 1.04, Total Counted Not Reportable Current Medications Dicyclomine HCl (Bentyl) 10 mg PO TIDAC [facility] Last Admin: 07/21/18 04:49 Dose: Not Given Enoxaparin Sodium (Lovenox) 40 mg SC DAILY@1000 [facility] Last Admin: 07/21/18 07:51 Dose: 40 mg [facility] Last Admin: 07/21/18 07:50 Dose: 325 mg Heparin Sodium (Beef Lung) () 50 units IV UD PRN PRN Reason: HEPARIN FLUSH Hydromorphone HCl (Dilaudid Inj) 1 mg IV Q3H PRN PRN PRN Reason: SEVERE PAIN (6-07/14) Last Admin: 07/21/18 07:33 Dose: 1 mg Sodium Chloride () 250 mls @ 15 mls/hr IV .[id number] PRN PRN Reason: SALINE FLUSH Sodium Chloride () 1,000 mls @ 75 mls/hr IV .[id number] [facility] Stop: 07/21/18 22:19 Magnesium Hydroxide (Milk Of Magnesia) 30 ml PO DAILY PRN PRN PRN Reason: Constipation Last Admin: 07/21/18 02:21 Dose: 30 ml Nicotine (Nicoderm Cq (Pbkc)) 14 mg TRANSDERM. DAILY [facility] Last Admin: 07/21/18 10:54 Dose: Not Given Nutritional Formula (Lactose Free) (Ensure Clear) 120 ml PO 4X/DAY [facility] Olanzapine (Zyprexa) 10 mg PO QHS [facility] Ondansetron HCl (Zofran) 4 mg IV Q6H PRN PRN PRN Reason: NAUSEA/VOMITING Paroxetine HCl (Paxil) 10 mg PO DAILY [facility] Last Admin: 07/21/18 07:56 Dose: 10 mg Pred[facility]one () [facility] Last Admin: 07/21/18 07:50 Dose: 5 mg Senna/Docusate Sodium (Senokot-S, Zuri-Colace) 2 tablet PO BID [facility] Last Admin: 07/21/18 07:56 Dose: 2 tablet Sodium Chloride () 10 ml IV UD PRN PRN Reason: VAD FLUSH Medical Necessity - Tobacco Use Smoking Status: Current every day smoker Tobacco Use: Cigarettes Assessment/Plan All Active Problems Abdominal pain (Acute) Hydronephrosis, right (Acute) 1. Abdominal pain reviewed CT there is stool, but not a significant amount no obvious ileus/SBO lactic acid normal--so unlikely due to ischemic colitis. On Bentyl, Milk of Mag Mag Citrate is no BM later today. Viral gastroenteritis? 2. Right hydronephrosis and proximal right hydroureter no stone, no hydronephrosis Question if due to prior XRTs on consult 3. Prostate cancer with homar mets mgmt per and oncology. 4. Hepatic cysts doubt causing his symptoms check US 5. DVT proph: SQ heparin. Code Visit Inpatient E&M: 11181 Subs Hosp L2
[2018-07-21] MEDS: 0.9% NaCl VAD Flush 10 ML IV (11:29)
--- NOTE | 2018-07-21 11:29 | PN_ITS ---
Patient Problems: Active and Suspected Problems Abdominal pain (Acute) Hydronephrosis, right (Acute) Subjective: Still with abdominal pain. Scant BMs. Abdominal distention. Vitals/I&O's: Vital Signs Temp Pulse Resp BP Pulse Ox 37.1 C 79 16 137/80 H 95 07/21/18 10:30 07/21/18 10:30 07/21/18 10:30 07/21/18 10:30 07/21/18 10:30 Oxygen Flow Rate (L/min) 2 Oxygen Delivery Method Nasal Cannula Weight: 86.5 kg Body Mass Index (BMI) 28.1 Intake and Output for Last 24 Hours 07/19/18 07/20/18 07/21/18 23:59 23:59 23:59 Intake Total 783 / 783 Balance 783 / 783 General: Alert, - - uncomfortable. HEENT: Atraumatic, Normocephalic Oral: Moist Mucosa, No Gingival or Mucosal Lesions/ Ulcerations Neck: No Nodes, Thyroid Normal Size and Texture Lungs: Clear to auscultation, Normal air movement, No rhonchi, No wheeze Cardiovascular: Regular rate, Regular Rhythm, Normal S1, Normal S2, No murmurs Abdomen: Bowel Sounds Present, Distended, Tender Extremities: No edema, No Calf Tenderness Skin: No rashes, No breakdown Psych/Mental Status: Normal Affect, Appropriate Laboratory Results 07/20/18 18:34: WBC 9.5, RBC 3.76 L, Hgb 12.2 L, Hct 37.3 L, MCV 99.2 H, MCH 32.4 H, MCHC 32.7, RDW 13.1, RDW Differential 47.6 H, Plt Count 374, MPV 10.2, Immature Gran % (Auto) 0.100, Neut % (Auto) 78.2 H, Lymph % (Auto) 13.1 L, [place] % (Auto) 8.2, Eos % (Auto) 0.2, Baso % (Auto) 0.2, Absolute Neuts (auto) 7.4, Absolute Lymphs (auto) 1.24, Total Counted Not Reportable 07/20/18 18:34: PT 14.3, INR 1.1, APTT 36.1 07/20/18 18:34: Sodium 143, Potassium 3.5, Chloride 110 H, Carbon Dioxide 24.0, Anion Gap 9, BUN 6 L, Creatinine 1.02, Estim Creat Clear Calc 76.05, Est GFR (MDRD) Af Amer 95, Est GFR (MDRD) Non-Af 79, BUN/Creatinine Ratio 5.9 L, Glucose 112 H, Calcium 8.3 L, Total Bilirubin 0.40, AST 12 L, ALT 18, Alkaline Phosphatase 210 H, Total Protein 7.3, Albumin 3.5, Globulin 3.8, Albumin/Globulin Ratio 0.9, Lipase 91 07/20/18 18:34: Lactic Acid 0.8 07/20/18 22:00: Urine Color Yellow, Urine Clarity Clear, Urine pH 5.0, Ur Specific [place] 1.015, Urine Protein 15 H, Urine Glucose (UA) Normal, Urine Ketones 5 H, Urine Occult Blood 10 H, Urine Nitrite Negative, Urine Bilirubin Negative, Urine Urobilinogen Normal, Ur Leukocyte Esterase Negative, Urine RBC 0-5 SEEN, Urine WBC 0-5 SEEN, Ur Squamous Epith Cells 0-5 SEEN, Urine Bacteria 0 SEEN, Urine Mucus 0 SEEN 07/21/18 08:43: Sodium 143, Potassium 3.3 L, Chloride 110 H, Carbon Dioxide 27.0, Anion Gap 6, BUN 7, Creatinine 1.12, Estim Creat Clear Calc 69.26, Est GFR (MDRD) Af Amer 86, Est GFR (MDRD) Non-Af 71, BUN/Creatinine Ratio 6.2 L, Glucose 124 H, Calcium 7.6 L 07/21/18 08:43: WBC 8.8, RBC 3.66 L, Hgb 12.0 L, Hct 36.9 L, MCV 100.8 H, MCH 32.8 H, MCHC 32.5, RDW 13.1, RDW Differential 47.8 H, Plt Count 342, MPV 9.9, Immature Gran % (Auto) 0.100, Neut % (Auto) 80.7 H, Lymph % (Auto) 11.9 L, [place] % (Auto) 6.5, Eos % (Auto) 0.7, Baso % (Auto) 0.1, Absolute Neuts (auto) 7.1, Absolute Lymphs (auto) 1.04, Total Counted Not Reportable Current Medications Dicyclomine HCl (Bentyl) 10 mg PO TIDAC [facility] Last Admin: 07/21/18 04:49 Dose: Not Given Enoxaparin Sodium (Lovenox) 40 mg SC DAILY@1000 [facility] Last Admin: 07/21/18 07:51 Dose: 40 mg Ferrous Sulfate ([facility]ous [facility]ulfate) [facility] Last Admin: 07/21/18 07:50 Dose: 325 mg Heparin Sodium (Beef Lung) () 50 units IV UD PRN PRN Reason: HEPARIN FLUSH Hydromorphone HCl (Dilaudid Inj) 1 mg IV Q3H PRN PRN PRN Reason: SEVERE PAIN (6-07/14) Last Admin: 07/21/18 07:33 Dose: 1 mg Sodium Chloride () 250 mls @ 15 mls/hr IV .[id number] PRN PRN Reason: SALINE FLUSH Sodium Chloride () 1,000 mls @ 75 mls/hr IV .[id number] [facility] Stop: 07/21/18 22:19 Magnesium Hydroxide (Milk Of Magnesia) 30 ml PO DAILY PRN PRN PRN Reason: Constipation Last Admin: 07/21/18 02:21 Dose: 30 ml Nicotine (Nicoderm Cq (Pbkc)) 14 mg TRANSDERM. DAILY [facility] Last Admin: 07/21/18 10:54 Dose: Not Given Nutritional Formula (Lactose Free) (Ensure Clear) 120 ml PO 4X/DAY [facility] Olanzapine (Zyprexa) 10 mg PO QHS [facility] Ondansetron HCl (Zofran) 4 mg IV Q6H PRN PRN PRN Reason: NAUSEA/VOMITING Paroxetine HCl (Paxil) 10 mg PO DAILY [facility] Last Admin: 07/21/18 07:56 Dose: 10 mg Prednisone () [facility] Last Admin: 07/21/18 07:50 Dose: 5 mg Senna/Docusate Sodium (Senokot-S, Zuri-Colace) 2 tablet PO BID [facility] Last Admin: 07/21/18 07:56 Dose: 2 tablet Sodium Chloride () 10 ml IV UD PRN PRN Reason: VAD FLUSH Medical Necessity - Tobacco Use Smoking Status: Current every day smoker Tobacco Use: Cigarettes Assessment/Plan All Active Problems Abdominal pain (Acute) Hydronephrosis, right (Acute) 1. Abdominal pain * reviewed CT there is stool, but not a significant amount * no obvious ileus/SBO * lactic acid normal--so unlikely due to ischemic colitis. * On Bentyl, Milk of Mag * Mag Citrate is no BM later today. * Viral gastroenteritis? 2. Right hydronephrosis and proximal right hydroureter * no stone, no hydronephrosis * Question if due to prior XRTs * on consult 3. Prostate cancer * with homar mets * mgmt per and oncology. 4. Hepatic cysts * doubt causing his symptoms * check US 5. DVT proph: SQ heparin. Code Visit Inpatient E&M: 13341 Subs Hosp L2
[2018-07-21] MEDS: 0.9% Normal Saline 1,000 ML 75 ML IV (11:35)
--- NOTE | 2018-07-21 12:12 | CASEMGMT ---
Social Work Note HCPOA and Living Will on pt's chart. Nicole Garcia DIRECTOR OF SALES AND MARKETING, STORE ASSOCIATE
--- NOTE | 2018-07-21 13:06 | PCM.CONS.U ---
Reason for Consult Date of Consultation: 07/21/18 Reason for Consultation: History of prostate cancer admission for constipation, right hydronephrosis History of Present Illness: The patient is a 62 year old male with a history of prostate cancer he is undergoing treatment with androgen deprivation hormone therapy he is also on anti-androgens, presents to the hospital with several days of obstipation he has not passed gas for several days his abdomen is Firm and distended. Also has not passed any bowels and has significant constipation. He does have some tenderness all over the abdomen especially in the right side. CAT scan reviewed he has some moderate hydronephrosis of the right kidney his creatinine is normal does have a transition zone in the pelvic area could be from prior radiation or from adenopathy. Past Medical History Past Medical History (Chronic Problems): Chronic Problems Prostate cancer metastatic to bone (Chronic) Allergies aspirin Adverse Reaction (Verified 07/20/18 17:52) Upset Stomach Home Medications: Ambulatory Orders Medication Instructions Recorded Lidocaine/Prilocaine 1 oint TOPICAL PRN PRN 11/30/14 [Lidocaine-Prilocaine Cream] Ondansetron [Zofran Odt] 8 mg PO Q8H PRN PRN 11/30/14 Ergocalciferol (Vitamin D2) 50,000 unit PO QWEEK 07/20/18 [Drisdol] Ferrous Sulfate [Iron] 325 mg PO BID 07/20/18 Furosemide [Lasix] 20 mg PO DAILY 07/20/18 Leuprolide Acetate [Eligard] 22.5 mg SQ UD 07/20/18 Olanzapine 10 mg PO QHS 07/20/18 Paroxetine HCl 10 mg PO DAILY 07/20/18 Pembrolizumab [Keytruda] 100 mg IV UD 07/20/18 Prednisone 5 mg PO DAILY 07/20/18 Surgical History: noncontributory, - - Port-A-Cath placement. Psychiatric History: No pertinent psych hx Lives: Spouse/ Significant Other Smoking Status: Current every day smoker Tobacco Use: Cigarettes Alcohol: None - *Family History Paternal Family History: Family History (Last Updated 07/21/18 @ 03:52 by oRb Caldwell MD) Father Prostate CA Mother CVA (cerebral vascular accident) Review of Systems Constitutional: Denies: Chills, Fever, Weight Change HEENT: Denies: Head Aches, Sinus Congestion, Sinus Drainage Cardiovascular: Denies: Chest Pain, Palpitations Respiratory: Denies: Cough, Shortness of breath at rest, Sputum production Gastrointestinal: Reports: Abdominal Pain. Denies: Nausea, Vomiting Genitourinary: Denies: Dysuria Musculoskeletal: Denies: Joint Pain, Joint Tenderness Skin: Denies: Rash, Wounds Neurological: Denies: Numbness, Tingling, Focal weakness Psychiatric: Denies: Anxiety, Depression, Homicidal Ideations, Suicidal Ideations Hematologic/ Lymphatic: Denies: Easy Bruising, Easy Bleeding Physical Exam - Physical Exam Vital Signs Temp 98.8 F 07/21/18 10:30 Pulse 79 07/21/18 10:30 Resp 16 07/21/18 10:30 BP 137/80 H 07/21/18 10:30 Pulse Ox 95 07/21/18 10:30 Intake & Output 07/19/18 07/20/18 07/21/18 23:59 23:59 23:59 Intake Total 783 / 783 Balance 783 / 783 Weight: 86.5 kg 86.5 kg Intake: Oral 250 / 250 IV fluid/meds 533 / 533 General: Alert, Oriented x3 HEENT: Atraumatic Oral: Moist Mucosa Neck: Supple Lungs: Normal air movement Cardiovascular: Regular rate Abdomen: Distended, Rigid, Tender Rectal: Exam deferred Laboratory Tests Past 24 Hrs 07/20/18 07/20/18 07/20/18 18:34 18:34 18:34 WBC 9.5 RBC 3.76 L Hgb 12.2 L Hct 37.3 L MCV 99.2 H MCH 32.4 H MCHC 32.7 RDW 13.1 RDW Differential 47.6 H Plt Count 374 MPV 10.2 Immature Gran % (Auto) 0.100 Neut % (Auto) 78.2 H Lymph % (Auto) 13.1 L Sanders % (Auto) 8.2 Eos % (Auto) 0.2 Baso % (Auto) 0.2 Absolute Neuts (auto) 7.4 Absolute Lymphs (auto) 1.24 Total Counted Not Reportable PT 14.3 INR 1.1 APTT 36.1 Sodium 143 Potassium 3.5 Chloride 110 H Carbon Dioxide 24.0 Anion Gap 9 BUN 6 L Creatinine 1.02 Estim Creat Clear Calc 76.05 Est GFR (MDRD) Af Amer 95 Est GFR (MDRD) Non-Af 79 BUN/Creatinine Ratio 5.9 L Glucose 112 H Lactic Acid Calcium 8.3 L Total Bilirubin 0.40 AST 12 L ALT 18 Alkaline Phosphatase 210 H Total Protein 7.3 Albumin 3.5 Globulin 3.8 Albumin/Globulin Ratio 0.9 Lipase 91 Urine Color Urine Clarity Urine pH Ur Specific [place] Urine Protein Urine Glucose (UA) Urine Ketones Urine Occult Blood Urine Nitrite Urine Bilirubin Urine Urobilinogen Ur Leukocyte Esterase Urine RBC Urine WBC Ur Squamous Epith Cells Urine Bacteria Urine Mucus 07/20/18 07/20/18 07/21/18 18:34 22:00 08:43 WBC RBC Hgb Hct MCV MCH MCHC RDW RDW Differential Plt Count MPV Immature Gran % (Auto) Neut % (Auto) Lymph % (Auto) Sanders % (Auto) Eos % (Auto) Baso % (Auto) Absolute Neuts (auto) Absolute Lymphs (auto) Total Counted PT INR APTT Sodium 143 Potassium 3.3 L Chloride 110 H Carbon Dioxide 27.0 Anion Gap 6 BUN 7 Creatinine 1.12 Estim Creat Clear Calc 69.26 Est GFR (MDRD) Af Amer 86 Est GFR (MDRD) Non-Af 71 BUN/Creatinine Ratio 6.2 L Glucose 124 H Lactic Acid 0.8 Calcium 7.6 L Total Bilirubin AST ALT Alkaline Phosphatase Total Protein Albumin Globulin Albumin/Globulin Ratio Lipase Urine Color Yellow Urine Clarity Clear Urine pH 5.0 Ur Specific [place] 1.015 Urine Protein 15 H Urine Glucose (UA) Normal Urine Ketones 5 H Urine Occult Blood 10 H Urine Nitrite Negative Urine Bilirubin Negative Urine Urobilinogen Normal Ur Leukocyte Esterase Negative Urine RBC 0-5 SEEN Urine WBC 0-5 SEEN Ur Squamous Epith Cells 0-5 SEEN Urine Bacteria 0 SEEN Urine Mucus 0 SEEN 07/21/18 08:43 WBC 8.8 RBC 3.66 L Hgb 12.0 L Hct 36.9 L MCV 100.8 H MCH 32.8 H MCHC 32.5 RDW 13.1 RDW Differential 47.8 H Plt Count 342 MPV 9.9 Immature Gran % (Auto) 0.100 Neut % (Auto) 80.7 H Lymph % (Auto) 11.9 L Sanders % (Auto) 6.5 Eos % (Auto) 0.7 Baso % (Auto) 0.1 Absolute Neuts (auto) 7.1 Absolute Lymphs (auto) 1.04 Total Counted Not Reportable PT INR APTT Sodium Potassium Chloride Carbon Dioxide Anion Gap BUN Creatinine Estim Creat Clear Calc Est GFR (MDRD) Af Amer Est GFR (MDRD) Non-Af BUN/Creatinine Ratio Glucose Lactic Acid Calcium Total Bilirubin AST ALT Alkaline Phosphatase Total Protein Albumin Globulin Albumin/Globulin Ratio Lipase Urine Color Urine Clarity Urine pH Ur Specific [place] Urine Protein Urine Glucose (UA) Urine Ketones Urine Occult Blood Urine Nitrite Urine Bilirubin Urine Urobilinogen Ur Leukocyte Esterase Urine RBC Urine WBC Ur Squamous Epith Cells Urine Bacteria Urine Mucus Assessment/Plan All Active Problems Abdominal pain (Acute) Hydronephrosis, right (Acute) 62-year-old male with history of prostate cancer presents to the hospital with severe constipation does have hydronephrosis and moderate amount in the right side this may be chronic in nature. His creatinine is slightly change but not significant. For now my can recommend any intervention or stent on the right kidney when I continue to monitor this if the kidney develops more hydronephrosis then he may need a stent. At this point I think more importantly is to resume his normal bowel function and and work on bowel regimen if this is unsuccessful may consider consult with GI or general surgery call me with questions I will continue to follow patient.
[2018-07-21] MEDS: Magnesium Citrate 300 ML 150 ML PO (19:12)
[2018-07-21] MEDS: OLANZapine 10 MG Tablet PO (22:38)
[2018-07-22] VITALS (7 sets, daily range): BP systolic 139–163; BP diastolic 72–93; PULSE 76–94; RESP 14–18; TEMP 37.2–38.4; O2SAT 93–98
[2018-07-22] MEDS: 0.9% NaCl VAD Flush 10 ML IV ×6 (01:04→19:50)
[2018-07-22] MEDS: HYDROmorphone 1 MG/ML Syringe IV ×4 (05:06→19:50)
[2018-07-22 05:34] LABS: Anion Gap 5 (5-15); BUN 6 mg/dL (7-18); BUN/Creat Ratio 7.4 RATIO (10-20); Calcium,Total 7.4 mg/dL (8.5-10.1); Chloride 114 mmol/L (98-107); Creatinine, Serum 0.81 mg/dL (0.70-1.30); EST Glomerular Filtration Rate 103 mL/min (>60); Est Glom Filt Rate - Afr Amer 125 mL/min (>60); Estimated Creatinine Clearance 95.77 ml/min; Glucose 111 mg/dL (74-106); Potassium 3.4 mmol/L (3.5-5.1); Sodium Level 146 mmol/L (136-145)
[2018-07-22 05:35] LABS: Absolute Lymphocyte Count 0.92 X10^3/ul (0.83-4.51); Absolute Neutrophil Count 5.8 X10^3/uL (2.0-7.7); Basophil# 0.02 X10^3/uL; Basophil% 0.3 % (0-1); Eosinophil# 0.11 X10^3/uL; Eosinophils% 1.4 % (0-5); Hemoglobin 10.9 g/dl (13.0-16.5); Lymphocyte # 0.92 X10^3/ul (4.0); Lymphocyte % 12.1 % (19-41); Mean Corpuscular Hgb 33.2 pg (27.0-32.0); Mean Corpuscular Volume 100.6 fL (80-94); Mean Platelet Vol. 10.1 fl (6.2-12.0); Monocyte# 0.75 X10^3/uL; Monocyte% 9.9 % (0-10); Neutrophil # 5.79 X10^3/uL (2.7-7.7); Platelet Count 306 K/mm3 (150-450); RBC Distribution Width CV 12.4 % (11.6-14.6); RBC Distribution Width SD 44.1 fl (35.1-43.9); Red Blood Count 3.28 M/mm3 (4.6-6.2); White Blood Count 7.6 K/mm3 (4.4-11.0)
[2018-07-22 05:42] LABS: POSITIVE COUNT NO; POSITIVE DIFFERENTIAL NO; POSITIVE MORPHOLOGY NO
[2018-07-22] MEDS: 0.9% NaCl IVPB Med Flush (250 mL) 15 ML IV (06:11)
[2018-07-22] MEDS: Ceftriaxone 1 GM/50 ML BAG IV (06:11)
[2018-07-22] MEDS: Dicyclomine 10 MG Capsule PO ×3 (06:15→16:55)
[2018-07-22] MEDS: Senna/Docusate Sodium 1 Tablet 2 TABLET PO (08:03)
[2018-07-22] MEDS: PARoxetine 10 MG Tablet PO (08:04)
[2018-07-22] MEDS: Ferrous Sulfate 325 MG Tablet PO ×2 (08:04→16:55)
[2018-07-22] MEDS: Enoxaparin 40 MG/0.4 ML Syringe SC (08:04)
[2018-07-22] MEDS: predniSONE 5 MG Tablet PO (08:04)
--- NOTE | 2018-07-22 11:42 | PCM.PROGNOTE ---
Patient Problems: Active and Suspected Problems Abdominal pain (Acute) Hydronephrosis, right (Acute) Subjective: hasn't had any vomiting but isn't needing a whole lot although he moved his bowels very well last evening. He had a fever to 101 this morning. Was associated with chills. After moving his bowels he noticed that he had a lot more right flank pain. The abdominal pain and cramping is improved. No gross hematuria reported. - Physical Exam General: Alert, Oriented x3 Lungs: Normal air movement Cardiovascular: Regular Rhythm Abdomen: Soft, - - mild diffuse tenderness but significant right flank tenderness Skin: No rashes Vital Signs Temp Pulse Resp BP Pulse Ox 100.2 F H 76 14 141/72 H 94 07/22/18 07:55 07/22/18 07:55 07/22/18 07:55 07/22/18 07:55 07/22/18 09:39 Oxygen Flow Rate (L/min) 2 Oxygen Delivery Method Room Air Weight: 86.5 kg Body Mass Index (BMI) 28.1 Intake and Output for Last 24 Hours 07/20/18 07/21/18 07/22/18 23:59 23:59 23:59 Intake Total 783 / 783 1906 / 1906 Balance 783 / 783 1906 / 1906 Laboratory Tests Past 24 Hrs 07/22/18 07/22/18 05:10 05:10 WBC 7.6 RBC 3.28 L Hgb 10.9 L Hct 33.0 L MCV 100.6 H MCH 33.2 H MCHC 33.0 RDW 12.4 RDW Differential 44.1 H Plt Count 306 MPV 10.1 Immature Gran % (Auto) 0.300 Neut % (Auto) 76.0 H Lymph % (Auto) 12.1 L [place] % (Auto) 9.9 Eos % (Auto) 1.4 Baso % (Auto) 0.3 Absolute Neuts (auto) 5.8 Absolute Lymphs (auto) 0.92 Total Counted Not Reportable Sodium 146 H Potassium 3.4 L Chloride 114 H Carbon Dioxide 27.0 Anion Gap 5 BUN 6 L Creatinine 0.81 Estim Creat Clear Calc 95.77 Est GFR (MDRD) Af Amer 125 Est GFR (MDRD) Non-Af 103 BUN/Creatinine Ratio 7.4 L Glucose 111 H Calcium 7.4 L Medical Necessity - Tobacco Use Smoking Status: Current every day smoker Tobacco Use: Cigarettes Assessment/Plan All Active Problems Abdominal pain (Acute) Hydronephrosis, right (Acute) ASSESSMENT/PLAN: 1) Nausea vomiting associated with abdominal cramping/pain. Assessment: -Associated with new mild right sided hydronephrosis/ureter. -His symptoms and radiographic findings are now highly suggestive of right-sided pyelonephritis or perinephric infection/abscess. Plan: -Appreciate Dr. Laguerre's recommendations. -Agree with Rocephin. -Would broaden the spectrum antibiotic coverage if fevers don't subside in the next 24 hours. -Follow up on blood and urine cultures. -Consider renal US if right flank pain does not subside in the next 24-48 hours. -Monitor Cr. 3) Castrate resistant metastatic prostate cancer. Assessment: -He has widespread metastatic disease including lymph nodes, bone and liver. -Mismatch repair testing revealed deficient state. This made him a candidate for immunotherapy. Plan: -He will continue every 3 week pembrolizumab in the outpatient setting.
--- NOTE | 2018-07-22 18:55 | PCM.PROGNOTE ---
Patient Problems: Active and Suspected Problems Abdominal pain (Acute) Hydronephrosis, right (Acute) Subjective: Patient seen and examined today, his was in his room and I discussed his medical care with her, I also talked with the patient's oncologist today Dr. Pandey. Patient ran a high temp this morning of 101.1, patient was started on IV Rocephin. I will repeat the patient's CBC tomorrow, I also had a brief discussion with urology concerning the patient's hydronephrosis, urology told me that there would not be a stent placed in the patient during this hospitalization. - Physical Exam General: Alert, Oriented x3, Cooperative, No apparent distress, Well developed, Well nourished HEENT: Atraumatic, PERRLA, EOMI, Normocephalic Oral: Moist Mucosa Neck: Supple, No Nuchal Rigidity, Trachea Midline, Thyroid Normal Size and Texture Lungs: Clear to auscultation, Normal air movement, No rhonchi, No wheeze, No rales Cardiovascular: Regular rate, Regular Rhythm, Normal S1, Normal S2, No murmurs, No Ectopic Activity, PMI Normal, No rub noted, No Gallop Abdomen: Bowel Sounds Present, Soft, Non Tender, Non-Distended, No hernias noted Extremities: No clubbing, No cyanosis, No edema, Capillary Refill Less than 3 Seconds Skin: No rashes, No breakdown Musculoskeletal: No Tenderness to Palpation of Joints or Extremities Neurological: Cranial nerves II-XII grossly intact, Neuro grossly intact, Motor Exam 5/5 strength throughout, Sensory exam intact to light touch and pain, Coordination normal Psych/Mental Status: Normal Affect, Appropriate, Alert and oriented to time, place, person, mood and affect Vital Signs Temp Pulse Resp BP Pulse Ox 99.7 F H 87 16 139/82 H 98 07/22/18 14:00 07/22/18 14:00 07/22/18 14:00 07/22/18 14:00 07/22/18 14:00 Oxygen Flow Rate (L/min) 2 Oxygen Delivery Method Room Air Weight: 86.5 kg Body Mass Index (BMI) 28.1 Intake and Output for Last 24 Hours 07/20/18 07/21/18 07/22/18 23:59 23:59 23:59 Intake Total 783 / 783 1906 / 1906 Balance 783 / 783 1905 Laboratory Tests Past 24 Hrs 07/22/18 07/22/18 05:10 05:10 WBC 7.6 RBC 3.28 L Hgb 10.9 L Hct 33.0 L MCV 100.6 H MCH 33.2 H MCHC 33.0 RDW 12.4 RDW Differential 44.1 H Plt Count 306 MPV 10.1 Immature Gran % (Auto) 0.300 Neut % (Auto) 76.0 H Lymph % (Auto) 12.1 L [place] % (Auto) 9.9 Eos % (Auto) 1.4 Baso % (Auto) 0.3 Absolute Neuts (auto) 5.8 Absolute Lymphs (auto) 0.92 Total Counted Not Reportable Sodium 146 H Potassium 3.4 L Chloride 114 H Carbon Dioxide 27.0 Anion Gap 5 BUN 6 L Creatinine 0.81 Estim Creat Clear Calc 95.77 Est GFR (MDRD) Af Amer 125 Est GFR (MDRD) Non-Af 103 BUN/Creatinine Ratio 7.4 L Glucose 111 H Calcium 7.4 L Medical Necessity - Tobacco Use Smoking Status: Current every day smoker Tobacco Use: Cigarettes Assessment/Plan All Active Problems Abdominal pain (Acute) Hydronephrosis, right (Acute) #1 abdominal pain-etiology unclear, possibly secondary to constipation, patient has less abdominal pain today than was indicated by his medical record when he was admitted, I will reevaluate the patient in the morning #2 right hydronephrosis-I talked with urology today, urology does not feel the patient needs a stent or cystoscopy at this time #3 febrile illness-etiology unclear, patient spiked temperature today and was placed on IV Rocephin, I will continue the IV Rocephin for now and await blood and urine culture results. I discussed this with oncology today #4 metastatic prostate cancer-oncology is following # 5 [id number] BMP Code Visit Inpatient E&M: 50089 Subs Hosp L2
[2018-07-22] MEDS: OLANZapine 10 MG Tablet PO (23:00)
[2018-07-23] VITALS (13 sets, daily range): BP systolic 108–167; BP diastolic 69–100; PULSE 77–116; RESP 16–18; TEMP 36.6–38.9; O2SAT 93–97; BMI 28.1
[2018-07-23] MEDS: 0.9% NaCl VAD Flush 10 ML IV ×6 (03:15→17:05)
[2018-07-23] MEDS: HYDROmorphone 1 MG/ML Syringe IV ×5 (03:15→17:05)
--- NOTE | 2018-07-23 04:53 | NURSING ---
Addendum entered by Codie Lakhani 07/23/18 04:55: PT ALSO EXPRESSES SAME CONCERNS Original Note: PT'S EXPRESSES CONCERN RE: INCREASING INTENSITY AND FREQUENCY OF PAIN. STATES HIS NEED FOR PAIN MEDICATION HAS INCREASED. DR CARO NOTIFIED. NEW X1 ORDER FOR OXYIR. STATES DAY SHIFT MD CAN CHANGE POC.
[2018-07-23] MEDS: oxyCODONE 5 MG Tablet PO (05:08)
[2018-07-23 05:12] LABS: Absolute Lymphocyte Count 0.95 X10^3/ul (0.83-4.51); Absolute Neutrophil Count 6.7 X10^3/uL (2.0-7.7); Basophil# 0.02 X10^3/uL; Basophil% 0.2 % (0-1); Eosinophil# 0.17 X10^3/uL; Hematocrit 33.8 % (40-54); Hemoglobin 11.1 g/dl (13.0-16.5); Lymphocyte # 0.95 X10^3/ul (4.0); Mean Corp Hgb Conc 32.8 g/gl (32-36); Mean Corpuscular Hgb 32.8 pg (27.0-32.0); Mean Platelet Vol. 9.8 fl (6.2-12.0); Monocyte# 0.79 X10^3/uL; Monocyte% 9.2 % (0-10); Neutrophil # 6.66 X10^3/uL (2.7-7.7); Neutrophil % 77.5 % (47-70); POSITIVE COUNT NO; POSITIVE DIFFERENTIAL NO; POSITIVE MORPHOLOGY NO; Platelet Count 309 K/mm3 (150-450); RBC Distribution Width SD 47.7 fl (35.1-43.9); Red Blood Count 3.38 M/mm3 (4.6-6.2); White Blood Count 8.6 K/mm3 (4.4-11.0)
[2018-07-23] MEDS: Dicyclomine 10 MG Capsule PO ×2 (06:15→10:49)
--- NOTE | 2018-07-23 07:45 | CT_ITS ---
STUDY: CT ABDOMEN AND PELVIS WITH CONTRAST REASON FOR EXAM: Male, 62 years old. ] Nephrocalcinosis RADIATION DOSAGE (If Supplied By Facility): CTDIvol = ( 19.72 ) mGy, DLP = ( 1194.80 ) mGycm TECHNIQUE: Transaxial images were obtained from the dome of the diaphragm to the symphysis pubis without oral contrast. 100 ml of Isovue 300 contrast was administered. Sagittal and coronal images were reconstructed. # of Images: 409 Individualized dose optimization techniques were used for this CT. COMPARISON: 07/20/2018 FINDINGS: The visualized lung bases demonstrate atelectasis and basilar scarring. Partially visualized prominent right hilum is noted. Correlate with CT of the chest if needed. The visualized portions of the heart are within normal limits. Numerous hypoattenuated lesions in the liver, most with interval enlargement up to 2.2 cm. Normal gallbladder and extrahepatic biliary system. Normal spleen. Normal pancreas. Normal bilateral adrenal glands. 8 mm right renal cyst. There is persistent right hydronephrosis and hydroureter. There is worsening right perinephric edema. Normal left kidney. Small hiatal hernia. Normal small intestine. Normal colon. The appendix is visualized and appears normal. Mildly calcified abdominal aorta. Normal inferior vena cava. Mild adenopathy in the retroperitoneum, slightly improved since the previous study. Slight wall thickening of the urinary bladder. Fatty density at the left inguinal canal. Normal abdominal wall. There are new sclerotic lesions of the vertebral column since the previous study requiring further evaluation. Metastasis cannot be excluded. CT/CT Abd/Pelvis W/WO Contrast IMPRESSION: Persistent right hydronephrosis and hydroureter. There is worsening right perinephric edema. Multiple osteosclerotic metastatic bone lesions. Electronically Signed: Yamileth Trujillo MD at 14:19 EDT Tel , Service support ,
[2018-07-23] MEDS: Ferrous Sulfate 325 MG Tablet PO (08:03)
[2018-07-23] MEDS: predniSONE 5 MG Tablet PO (08:03)
--- NOTE | 2018-07-23 10:03 | NURSING ---
LEAVING UNIT VIA BED FOR CT SCAN
[2018-07-23] MEDS: PARoxetine 10 MG Tablet PO (10:49)
[2018-07-23] MEDS: Senna/Docusate Sodium 1 Tablet 2 TABLET PO ×2 (10:49→22:54)
[2018-07-23] MEDS: Enoxaparin 40 MG/0.4 ML Syringe SC (10:49)
[2018-07-23] MEDS: Ceftriaxone 1 GM/50 ML BAG IV (10:49)
--- NOTE | 2018-07-23 11:37 | PCM.PROGNOTE ---
Patient Problems: Active and Suspected Problems Abdominal pain (Acute) Hydronephrosis, right (Acute) Subjective: More right flank and side pain through the night. Low grade temps. He's had no vomiting since presentation to the ER. Not eating a whole lot but taking fluids and keeping them down. No nausea. - Physical Exam General: Alert, Oriented x3 Lungs: Normal air movement Cardiovascular: Regular Rhythm Abdomen: - - More tender whole right abdomen. Vital Signs Temp Pulse Resp BP Pulse Ox 99.1 F 77 16 162/91 H 93 07/23/18 08:30 07/23/18 08:30 07/23/18 08:30 07/23/18 08:30 07/23/18 08:30 Oxygen Flow Rate (L/min) 2 Oxygen Delivery Method Room Air Weight: 86.5 kg Body Mass Index (BMI) 28.1 Intake and Output for Last 24 Hours 07/21/18 07/22/18 07/23/18 23:59 23:59 23:59 Intake Total 783 / 783 2156 / 2156 Balance 783 / 783 2156 / 2156 Microbiology Past 72 Hours 07/20/18 22:00 Urine Culture - Final Urine, Clean Catch Culture exhibits no growth. Laboratory Tests Past 24 Hrs 07/23/18 05:00 WBC 8.6 RBC 3.38 L Hgb 11.1 L Hct 33.8 L MCV 100.0 H MCH 32.8 H MCHC 32.8 RDW 13.0 RDW Differential 47.7 H Plt Count 309 MPV 9.8 Immature Gran % (Auto) 0.100 Neut % (Auto) 77.5 H Lymph % (Auto) 11.0 L [place] % (Auto) 9.2 Eos % (Auto) 2.0 Baso % (Auto) 0.2 Absolute Neuts (auto) 6.7 Absolute Lymphs (auto) 0.95 Total Counted Not Reportable Medical Necessity - Tobacco Use Smoking Status: Current every day smoker Tobacco Use: Cigarettes Assessment/Plan All Active Problems Abdominal pain (Acute) Hydronephrosis, right (Acute) ASSESSMENT/PLAN: 1) Hydronephrosis/ureter and possible perinephric infection/abscess. Assessment: -Pain is worse. Plan: -Continue Rocephin for now. -Follow up on blood and urine cultures. -Repeat CT A/P today. -Monitor Cr. 3) Castrate resistant metastatic prostate cancer. Assessment: -He has widespread metastatic disease including lymph nodes, bone and liver. -Mismatch repair testing revealed deficient state. This made him a candidate for immunotherapy. Plan: -He will continue every 3 week pembrolizumab in the outpatient setting.
[2018-07-23] MEDS: 0.9% Normal Saline 1,000 ML 100 ML IV (14:30)
[2018-07-23] MEDS: Lidocaine Jelly 2% 20 ML Syringe (URO-JET) 20 APPLIC (18:05)
--- NOTE | 2018-07-23 18:21 | OP.PCM_ITS ---
Problem List (1) Hydronephrosis, right Status: Acute Report of Operation Date of Procedure: 07/23/18 Pre-Operative Diagnosis: Right hydronephrosis fevers and chills history of prostate cancer Post-Operative Diagnosis: Same Surgery/Procedure Performed:: Cystoscopy, right stent placement catheterization and urine taken from the right kidney Description of Surgical Findings:: 62-year-old male taken back to the operating room after smooth induction of MAC local penis and testicles were prepped and draped in usual sterile fashion, placed lidocaine jelly into the urethra, went into the bladder with a 21 [place]ian rigid cystourethroscope, the entire length the urethra is normal no scar tissue, sphincter is normal, prostate normal, verumontanum was normal, the bladder was normal left and right ureteral orifice normal trigones were normal I think cannulated the right ureteral orifice with a Glidewire, and then obtained urine from the right kidney the urine was not infected looking but this was sent off for culture, I then advanced a wire up into the right kidney and then over the wire advanced a stent stent coiled in the right kidney and bladder in good position pulled the wire and the stent coiled drain the bladder and the patient's anesthetic is being reversed. We will see if his fever curve defervesced is in his right flank pain resolves after his placement of the stent. Type of Anesthesia:: Local MAC Drains: stent right side - Admit VTE Documentation VTE Present on Admission: No VTE Mechan Device Prophylaxis: SCD's
--- NOTE | 2018-07-23 18:32 | PCM.PROGNOTE ---
Patient Problems: Active and Suspected Problems Abdominal pain (Acute) Hydronephrosis, right (Acute) Subjective: Patient was seen and examined today, I talked at length with Dr. Laguerre and Dr. Pandey today. Patient had more right flank pain last night and today and it was decided by urology that he would undergo a right renal stent placement. This was done late this afternoon, patient has been febrile today, he continues to be covered with IV Rocephin. Patient's urine culture has been negative so far. - Physical Exam General: Alert, Oriented x3, Cooperative, No apparent distress, Well developed, Well nourished HEENT: Atraumatic, PERRLA, EOMI, Normocephalic Oral: Moist Mucosa Neck: Supple, No Nuchal Rigidity, Trachea Midline, Thyroid Normal Size and Texture Lungs: Clear to auscultation, Normal air movement, No rhonchi, No wheeze, No rales Cardiovascular: Regular rate, Regular Rhythm, Normal S1, Normal S2, No murmurs, No Ectopic Activity Abdomen: Bowel Sounds Present, Soft, Non Tender, Non-Distended Extremities: No edema, Capillary Refill Less than 3 Seconds Skin: No rashes, No breakdown Musculoskeletal: No Tenderness to Palpation of Joints or Extremities Neurological: Cranial nerves II-XII grossly intact, Neuro grossly intact, Sensory exam intact to light touch and pain, Coordination normal Psych/Mental Status: Normal Affect, Appropriate, Alert and oriented to time, place, person, mood and affect Vital Signs Temp Pulse Resp BP Pulse Ox 102.1 F H 99 16 135/69 H 93 07/23/18 17:16 07/23/18 17:16 07/23/18 17:16 07/23/18 17:16 07/23/18 17:16 Oxygen Flow Rate (L/min) 3 Oxygen Delivery Method Nasal Cannula Weight: 86.5 kg Body Mass Index (BMI) 28.1 Intake and Output for Last 24 Hours 07/21/18 07/22/18 07/23/18 23:59 23:59 23:59 Intake Total 783 / 783 2156 / 2156 1046 / 1046 Balance 783 / 783 2156 / 2156 1046 / 1046 Microbiology Past 72 Hours 07/20/18 22:00 Urine Culture - Final Urine, Clean Catch Culture exhibits no growth. Laboratory Tests Past 24 Hrs 07/23/18 05:00 WBC 8.6 RBC 3.38 L Hgb 11.1 L Hct 33.8 L MCV 100.0 H MCH 32.8 H MCHC 32.8 RDW 13.0 RDW Differential 47.7 H Plt Count 309 MPV 9.8 Immature Gran % (Auto) 0.100 Neut % (Auto) 77.5 H Lymph % (Auto) 11.0 L [place] % (Auto) 9.2 Eos % (Auto) 2.0 Baso % (Auto) 0.2 Absolute Neuts (auto) 6.7 Absolute Lymphs (auto) 0.95 Total Counted Not Reportable Medical Necessity - Tobacco Use Smoking Status: Current every day smoker Tobacco Use: Cigarettes Assessment/Plan All Active Problems Abdominal pain (Acute) Hydronephrosis, right (Acute) #1 Abdominal pain-probably secondary to hydronephrosis, patient underwent stent placement today in the right kidney, labs will be ordered for the a.m., he will remain on Rocephin. #2 right hydronephrosis-again stent was placed today in the right kidney #3 febrile illness-etiology unclear, possibly secondary to pyelonephritis, CBC will be repeated tomorrow, patient will remain on Rocephin, blood cultures are pending #4 metastatic prostate cancer-oncology is following # 5 [id number] CMP tomorrow Code Visit Inpatient E&M: 53561 Subs Hosp L2
[2018-07-23] MEDS: Acetaminophen 500 MG Tablet 1000 MG PO (22:14)
[2018-07-23] MEDS: OLANZapine 10 MG Tablet PO (22:53)
[2018-07-24] VITALS (9 sets, daily range): BP systolic 132–155; BP diastolic 76–83; PULSE 71–95; RESP 14–20; TEMP 36.6–37.3; O2SAT 88–100
[2018-07-24] MEDS: 0.9% Normal Saline 1,000 ML 100 ML IV (02:13)
[2018-07-24 06:11] LABS: Absolute Lymphocyte Count 0.97 X10^3/ul (0.83-4.51); Basophil# 0.02 X10^3/uL; Basophil% 0.2 % (0-1); Eosinophil# 0.19 X10^3/uL; Eosinophils% 1.9 % (0-5); Hematocrit 31.9 % (40-54); Hemoglobin 10.3 g/dl (13.0-16.5); Lymphocyte # 0.97 X10^3/ul (4.0); Lymphocyte % 9.5 % (19-41); Mean Corp Hgb Conc 32.3 g/gl (32-36); Mean Corpuscular Hgb 32.6 pg (27.0-32.0); Mean Corpuscular Volume 100.9 fL (80-94); Mean Platelet Vol. 9.8 fl (6.2-12.0); Monocyte# 1.05 X10^3/uL; Monocyte% 10.3 % (0-10); Neutrophil # 7.95 X10^3/uL (2.7-7.7); Platelet Count 325 K/mm3 (150-450); RBC Distribution Width CV 13.3 % (11.6-14.6); RBC Distribution Width SD 48.8 fl (35.1-43.9); Red Blood Count 3.16 M/mm3 (4.6-6.2); White Blood Count 10.2 K/mm3 (4.4-11.0)
[2018-07-24 06:13] LABS: POSITIVE COUNT NO; POSITIVE DIFFERENTIAL NO; POSITIVE MORPHOLOGY NO
[2018-07-24 06:17] LABS: ALB/GLOB Ratio 0.7 RATIO (0.9-2.4); AST(SGOT) 16 U/L (15-37); Alanine Aminotransfer ALT/SGPT 20 U/L (16-61); Albumin, Serum 2.6 g/dL (3.2-5.0); Alkaline Phosphatase 153 U/L (45-117); Anion Gap 6 (5-15); BUN 8 mg/dL (7-18); BUN/Creat Ratio 11.3 RATIO (10-20); Calcium,Total 7.5 mg/dL (8.5-10.1); Chloride 114 mmol/L (98-107); Creatinine, Serum 0.71 mg/dL (0.70-1.30); EST Glomerular Filtration Rate 120 mL/min (>60); Est Glom Filt Rate - Afr Amer 145 mL/min (>60); Estimated Creatinine Clearance 109.26 ml/min; Globulin 3.8 g/dL (2.2-4.2); Glucose 113 mg/dL (74-106); Potassium 3.8 mmol/L (3.5-5.1); Protein, Total 6.4 g/dL (6.4-8.2); Sodium Level 146 mmol/L (136-145)
[2018-07-24] MEDS: Dicyclomine 10 MG Capsule PO ×2 (06:28→16:42)
[2018-07-24] MEDS: 0.9% NaCl VAD Flush 10 ML IV ×2 (06:29→06:30)
[2018-07-24] MEDS: predniSONE 5 MG Tablet PO (08:53)
[2018-07-24] MEDS: Ferrous Sulfate 325 MG Tablet PO ×2 (08:54→16:42)
[2018-07-24] MEDS: Enoxaparin 40 MG/0.4 ML Syringe SC (08:54)
[2018-07-24] MEDS: PARoxetine 10 MG Tablet PO (08:55)
[2018-07-24] MEDS: Senna/Docusate Sodium 1 Tablet 2 TABLET PO ×2 (08:55→22:55)
[2018-07-24] MEDS: Ceftriaxone 1 GM/50 ML BAG IV (08:55)
--- NOTE | 2018-07-24 09:01 | PN_ITS ---
Patient Problems: Active and Suspected Problems Abdominal pain (Acute) Hydronephrosis, right (Acute) Subjective: He is feeling better after his ureteral stent placement for hydronephrosis. no nausea, vomiting or abdominal cramps. Had bowel movement yesterday - Physical Exam General: Alert, Oriented x3, Cooperative, No apparent distress Oral: Moist Mucosa, No Gingival or Mucosal Lesions/ Ulcerations Neck: Supple, No JVD Lungs: Clear to auscultation Cardiovascular: Regular rate, Regular Rhythm, Normal S1, Normal S2, No murmurs Abdomen: Bowel Sounds Present, Soft, Non Tender, Non-Distended, No Hepato- splenomegaly Extremities: No clubbing, No cyanosis, No edema Skin: No rashes, No breakdown Lymphatic: No Cervical, Supraclavicular, or Inguinal Adenopathy Neurological: Neuro grossly intact Psych/Mental Status: Normal Affect Vital Signs Temp Pulse Resp BP Pulse Ox 99.0 F 83 18 134/83 H 95 07/24/18 08:15 07/24/18 08:15 07/24/18 08:15 07/24/18 08:15 07/24/18 08:15 Oxygen Flow Rate (L/min) 1 Oxygen Delivery Method Nasal Cannula Weight: 190 lb 11.198 oz Body Mass Index (BMI) 28.1 Intake and Output for Last 24 Hours 07/22/18 07/23/18 07/24/18 23:59 23:59 23:59 Intake Total 2156 / 2156 2046 / 2046 1489 / 1489 Output Total 650 / 650 Balance 2156 / 2156 2046 / 2046 839 / 839 Microbiology Past 72 Hours 07/20/18 22:00 Urine Culture - Final Urine, Clean Catch Culture exhibits no growth. Laboratory Tests Past 24 Hrs 07/24/18 07/24/18 05:48 05:48 WBC 10.2 RBC 3.16 L Hgb 10.3 L Hct 31.9 L MCV 100.9 H MCH 32.6 H MCHC 32.3 RDW 13.3 RDW Differential 48.8 H Plt Count 325 MPV 9.8 Immature Gran % (Auto) 0.100 Neut % (Auto) 78.0 H Lymph % (Auto) 9.5 L Phillips % (Auto) 10.3 H Eos % (Auto) 1.9 Baso % (Auto) 0.2 Absolute Neuts (auto) 8.0 H Absolute Lymphs (auto) 0.97 Total Counted Not Reportable Sodium 146 H Potassium 3.8 Chloride 114 H Carbon Dioxide 26.0 Anion Gap 6 BUN 8 Creatinine 0.71 Estim Creat Clear Calc 109.26 Est GFR (MDRD) Af Amer 145 Est GFR (MDRD) Non-Af 120 BUN/Creatinine Ratio 11.3 Glucose 113 H Calcium 7.5 L Total Bilirubin 0.30 AST 16 ALT 20 Alkaline Phosphatase 153 H Total Protein 6.4 Albumin 2.6 L Globulin 3.8 Albumin/Globulin Ratio 0.7 L ASSESSMENT/PLAN: 1) Hydronephrosis/ureter and possible perinephric infection/abscess. Assessment: -Pain is better. Plan: -Continue Rocephin for now. - to outpatient oral antibiotic (CIPRO) -Monitor Cr & CBC -Will discharge home this weekend 2) Constipation Assessment: - is better. Plan: -Continue Senokot at home -MiraLAX or milk of magnesia as needed for constipation -Ambulate and increase fluid intake. 3) Castrate resistant metastatic prostate cancer. Assessment: -He has widespread metastatic disease including lymph nodes, bone and liver. -Mismatch repair testing revealed deficient state. This made him a candidate for immunotherapy. Plan: -He will continue every 3 week pembrolizumab in the outpatient setting. -Follow-up with Dr. Pandey in 2 weeks cc: Dr. Fernando Pandey; Dr. Ed Laguerre; Dr. Brenda Feliz Medical Necessity - Tobacco Use Smoking Status: Current every day smoker Tobacco Use: Cigarettes Assessment/Plan All Active Problems Abdominal pain (Acute) Hydronephrosis, right (Acute)
--- NOTE | 2018-07-24 09:10 | NURSING ---
PT POX ON ROOM AIR X 30 MINUTES IS 93%
--- NOTE | 2018-07-24 11:00 | RAD_ITS ---
STUDY: X-RAY CHEST REASON FOR EXAM: Male, 62 years old. Shortness of breath with dyspnea TECHNIQUE: Single AP portable view of the chest. # of Images: 1 COMPARISON: None. FINDINGS: Right chest wall Mediport Left lung is clear. Right lower lobe airspace disease is noted with possible scarring or platelike atelectasis. There is no demonstrated pleural abnormality. Normal size heart. Normal mediastinum and dileep. Normal visualized pulmonary arteries. Normal visualized aortic arch and descending thoracic aorta. Normal visualized thoracic spine. Normal visualized ribs, clavicles, and shoulders. There is no demonstrated abnormality of the visualized soft tissue structures of the upper abdomen. RAD/Chest 1 View (Portable) IMPRESSION: Suspicion for right lower lobe pneumonia with superimposed atelectasis. Left lung is clear Electronically Signed: Jeison Luna DO at 11:25 EDT Tel , Service support ,
--- NOTE | 2018-07-24 12:38 | PCM.PROGNOTE ---
Patient Problems: Active and Suspected Problems Abdominal pain (Acute) Hydronephrosis, right (Acute) Subjective: Patient was seen and examined today, his is in the room, he states that his right flank pain has resolved, patient's blood culture so far is negative, his urine culture also is negative from 07/20/18. Patient's urine culture from 07/23/18 is still pending. Patient's T-max today is 99.2., Patient's pulse ox is 88% on room air, a portable chest x-ray was obtained which showed a suspicion for a right lower lobe pneumonia with atelectasis, left lung was clear. I will order aerosol treatments for the patient and repeat his chest x-ray tomorrow. - Physical Exam General: Alert, Oriented x3, Cooperative, No apparent distress, Well developed, Well nourished HEENT: Atraumatic, PERRLA, EOMI, Normocephalic Oral: Moist Mucosa Neck: Supple, No Nuchal Rigidity, Trachea Midline, Thyroid Normal Size and Texture Lungs: Clear to auscultation, Normal air movement, No rhonchi, No wheeze, No rales Cardiovascular: Regular rate, Regular Rhythm, Normal S1, Normal S2, No murmurs, No Ectopic Activity Abdomen: Bowel Sounds Present, Soft, Non Tender, Non-Distended Extremities: No edema, Capillary Refill Less than 3 Seconds Skin: No rashes, No breakdown Musculoskeletal: No Tenderness to Palpation of Joints or Extremities Neurological: Cranial nerves II-XII grossly intact, Neuro grossly intact, Sensory exam intact to light touch and pain, Coordination normal Psych/Mental Status: Normal Affect, Appropriate, Alert and oriented to time, place, person, mood and affect Vital Signs Temp Pulse Resp BP Pulse Ox 99.0 F 83 18 134/83 H 88 07/24/18 08:15 07/24/18 08:15 07/24/18 08:15 07/24/18 08:15 07/24/18 12:00 Oxygen Flow Rate (L/min) 1 Oxygen Delivery Method Room Air Weight: 86.5 kg Body Mass Index (BMI) 28.1 Intake and Output for Last 24 Hours 07/22/18 07/23/18 07/24/18 23:59 23:59 23:59 Intake Total 2156 / 2156 6 / 2045 2584 / 2584 Output Total 1000 / 1000 Balance 2156 / 2156 2046 / 2046 1584 / 1584 Microbiology Past 72 Hours 07/22/18 05:50 Blood Culture - Preliminary Blood Culture (Wb) - Right Hand No growth in 48 hours. 07/22/18 06:00 Blood Culture - Preliminary Blood Culture (Wb) - Port No growth in 48 hours. 07/20/18 22:00 Urine Culture - Final Urine, Clean Catch Culture exhibits no growth. Laboratory Tests Past 24 Hrs 07/24/18 07/24/18 05:48 05:48 WBC 10.2 RBC 3.16 L Hgb 10.3 L Hct 31.9 L MCV 100.9 H MCH 32.6 H MCHC 32.3 RDW 13.3 RDW Differential 48.8 H Plt Count 325 MPV 9.8 Immature Gran % (Auto) 0.100 Neut % (Auto) 78.0 H Lymph % (Auto) 9.5 L [place] % (Auto) 10.3 H Eos % (Auto) 1.9 Baso % (Auto) 0.2 Absolute Neuts (auto) 8.0 H Absolute Lymphs (auto) 0.97 Total Counted Not Reportable Sodium 146 H Potassium 3.8 Chloride 114 H Carbon Dioxide 26.0 Anion Gap 6 BUN 8 Creatinine 0.71 Estim Creat Clear Calc 109.26 Est GFR (MDRD) Af Amer 145 Est GFR (MDRD) Non-Af 120 BUN/Creatinine Ratio 11.3 Glucose 113 H Calcium 7.5 L Total Bilirubin 0.30 AST 16 ALT 20 Alkaline Phosphatase 153 H Total Protein 6.4 Albumin 2.6 L Globulin 3.8 Albumin/Globulin Ratio 0.7 L Medical Necessity - Tobacco Use Smoking Status: Current every day smoker Tobacco Use: Cigarettes Assessment/Plan All Active Problems Abdominal pain (Acute) Hydronephrosis, right (Acute) #1 Abdominal pain- secondary to hydronephrosis, patient underwent stent placement yesterday in the right kidney, await urine culture results from yesterday #2 right hydronephrosis-again stent was placed yesterday #3 febrile illness-etiology unclear, possibly secondary to pyelonephritis, chest x-ray today showed possible area of pneumonic infiltrate-this may just be atelectasis however, aerosol treatments will be ordered for the patient and chest x-ray will be repeated tomorrow #4 metastatic prostate cancer-oncology is following # 5 hypokalemia-resolved Code Visit Inpatient E&M: 79597 Subs Hosp L2
[2018-07-24] MEDS: 0.9% Normal Saline 1,000 ML 30 ML IV (13:37)
[2018-07-24] MEDS: Albuterol 2.5 MG/3 ML VIAL.NEB. INHALATION ×2 (13:43→19:10)
--- NOTE | 2018-07-24 14:37 | NURSING ---
after explaining importance of activity (ie:up in chair, oob, walking in hallway) to pt and and pt not getting oob, or walking in hallway or getting up in chair, went back in room to encourage pt to increase activity-pt told me wants to sit in chair and he says he wants to stay in bed and will just sit on edge of bed to do I.S.-pt then went to desk and asked for a new nurse-
[2018-07-24] MEDS: Acetaminophen 500 MG Tablet 1000 MG PO (16:49)
[2018-07-24] MEDS: oxyCODONE 5 MG Tablet PO (20:43)
[2018-07-24] MEDS: HYDROmorphone 1 MG/ML Syringe IV (22:55)
[2018-07-24] MEDS: OLANZapine 10 MG Tablet PO (22:56)
[2018-07-25 02:00] VITALS: BP 132/68; PULSE 71; RESP 16; TEMP 36.9; O2SAT 95
--- NOTE | 2018-07-25 03:50 | RAD_ITS ---
STUDY: X-RAY CHEST REASON FOR EXAM: Male, 62 years old. Shortness of breath TECHNIQUE: Single frontal view of the chest. # of Images: 1 COMPARISON: July 24, 2018. FINDINGS: Right Port-A-Cath with tip projecting over the superior cavoatrial junction/right atrium. Low lung volumes. Degenerative changes. The heart is within normal limits in size. No pneumothorax. Elevation of the right hemidiaphragm, nonspecific. Right basilar atelectasis/infiltrate again noted. Minimal left basilar atelectasis/scarring. RAD/Chest 1 View (Portable) IMPRESSION: No significant interval change in comparison to prior study July 24, 2018. Findings are concerning for right lower lobe pneumonia. Follow-up to ensure resolution. Underlying mass cannot be excluded. Electronically Signed: Prasanna Lizama, at 7:45 EDT Tel , Service support ,
[2018-07-25] MEDS: Dicyclomine 10 MG Capsule PO ×2 (06:50→13:16)
[2018-07-25] MEDS: oxyCODONE 5 MG Tablet PO ×2 (06:50→13:47)
[2018-07-25 07:15] VITALS: O2SAT 96
[2018-07-25 09:26] VITALS: BP 154/80; PULSE 96; RESP 16; TEMP 37.3; O2SAT 96
[2018-07-25] MEDS: predniSONE 5 MG Tablet PO (09:32)
[2018-07-25] MEDS: Ferrous Sulfate 325 MG Tablet PO (09:32)
[2018-07-25] MEDS: Enoxaparin 40 MG/0.4 ML Syringe SC (09:33)
[2018-07-25] MEDS: Senna/Docusate Sodium 1 Tablet 2 TABLET PO (09:34)
[2018-07-25] MEDS: PARoxetine 10 MG Tablet PO (09:35)
[2018-07-25] MEDS: Ceftriaxone 1 GM/50 ML BAG IV (09:35)
--- NOTE | 2018-07-25 13:44 | PCM.DC ---
- Discharge Diagnoses Current Active Problems: Current Active and Chronic Problems Abdominal pain (Acute) Hydronephrosis, right (Acute) Prostate cancer metastatic to bone (Chronic) You will use the following diet at home:: No restrictions Your food should be the consistency of: Regular Your liquids should be the consistency of: Regular/Thin Discharge Activity: Return to Normal Activity Weight Bearing Status: Full weight bearing Allergies/Adverse Reactions: Allergies aspirin Adverse Reaction (Verified 07/20/18 17:52) Upset Stomach Medications to take at Discharge Lidocaine/Prilocaine [Lidocaine-Prilocaine Cream] 1 oint TOPICAL PRN PRN 11/30/14 Ondansetron [Zofran Odt] 8 mg PO Q8H PRN PRN 11/30/14 Ergocalciferol (Vitamin D2) [Drisdol] 50,000 unit PO QWEEK 07/20/18 Ferrous Sulfate [Iron] 325 mg PO BID 07/20/18 Leuprolide Acetate [Eligard] 22.5 mg SQ UD 07/20/18 Paroxetine HCl 10 mg PO DAILY 07/20/18 Pembrolizumab [Keytruda] 100 mg IV UD 07/20/18 Prednisone 5 mg PO DAILY 07/20/18 Cephalexin [Keflex] 500 mg PO TID #12 cap 07/25/18 Nicotine [Nicoderm] 14 mg TRANSDERM. DAILY #30 patch 07/25/18 Oxycodone [Oxyir] 5 mg PO Q6H PRN PRN 7 Days #20 tab 07/25/18 The following prescriptions were given: Oxycodone [Oxyir] 5 mg PO Q6H PRN PRN 7 Days #20 tab PRN Reason: Severe Pain (-07/14) Nicotine [Nicoderm] 14 mg TRANSDERM. DAILY #30 patch Cephalexin [Keflex] 500 mg PO TID #12 cap Primary Care Physician: [facility] Doctor,Out of [NON-STAFF] - Test Results: Test results from this visit will be discussed in further detail at your follow-up appointment, if applicable. Please Follow Up With: Fernando Pandey DO When: as directed Please Follow Up With: Modesto Laguerre MD When: as directed
[2018-07-25 13:48] VITALS: BP 166/76; PULSE 90; RESP 16; TEMP 37.1; O2SAT 94
--- NOTE | 2018-07-25 13:48 | DCINST_ITS ---
- Discharge Diagnoses Current Active Problems: Current Active and Chronic Problems Abdominal pain (Acute) Hydronephrosis, right (Acute) Prostate cancer metastatic to bone (Chronic) You will use the following diet at home:: No restrictions Your food should be the consistency of: Regular Your liquids should be the consistency of: Regular/Thin Discharge Activity: Return to Normal Activity Weight Bearing Status: Full weight bearing Allergies/Adverse Reactions: Allergies aspirin Adverse Reaction (Verified 07/20/18 17:52) Upset Stomach Medications to take at Discharge Lidocaine/Prilocaine [Lidocaine-Prilocaine Cream] 1 oint TOPICAL PRN PRN 11/30/14 Ondansetron [Zofran Odt] 8 mg PO Q8H PRN PRN 11/30/14 Ergocalciferol (Vitamin D2) [Drisdol] 50,000 unit PO QWEEK 07/20/18 Ferrous Sulfate [Iron] 325 mg PO BID 07/20/18 Leuprolide Acetate [Eligard] 22.5 mg SQ UD 07/20/18 Paroxetine HCl 10 mg PO DAILY 07/20/18 Pembrolizumab [Keytruda] 100 mg IV UD 07/20/18 Prednisone 5 mg PO DAILY 07/20/18 Cephalexin [Keflex] 500 mg PO TID #12 cap 07/25/18 Nicotine [Nicoderm] 14 mg TRANSDERM. DAILY #30 patch 07/25/18 Oxycodone [Oxyir] 5 mg PO Q6H PRN PRN 7 Days #20 tab 07/25/18 The following prescriptions were given: Oxycodone [Oxyir] 5 mg PO Q6H PRN PRN 7 Days #20 tab PRN Reason: Severe Pain (-07/14) Nicotine [Nicoderm] 14 mg TRANSDERM. DAILY #30 patch Cephalexin [Keflex] 500 mg PO TID #12 cap Primary Care Physician: [facility] Doctor,Out of [NON-STAFF] - Test Results: Test results from this visit will be discussed in further detail at your follow- up appointment, if applicable. Please Follow Up With: Fernando Pandey DO When: as directed Please Follow Up With: Modesto Laguerre MD When: as directed
--- NOTE | 2018-07-25 19:50 | DS.PCM_ITS ---
Discharge Date and Diagnosis Date of Admission: 07/20/18 Date of Discharge: 07/25/18 - Primary Discharge Diagnosis #1 right hydronephrosis secondary to prostate cancer #2 fever of unknown origin-believed to be secondary to urinary tract infection from gram-negative bacteria #3 metastatic prostate cancer #4 hypokalemia #5 right-sided abdominal pain secondary to hydronephrosis-secondary to prostate cancer #6 anemia of chronic disease - Secondary Discharge Diagnosis Chronic Problems Prostate cancer metastatic to bone (Chronic) Hospital Course and Treatment Operations: - - Cystoscopy with right kidney stent placement Procedures: None Summary of Care Provided: The patient is a 62 year old M who was seen in the emergency room at [facility] with chief complaint of right-sided abdominal and right flank pain associated with nausea and vomiting. Patient had a history of metastatic prostate cancer and is being followed by Dr. Pandey. Workup in the emergency room included a CBC which showed a normal white blood cell count, hemoglobin was 12, chemistry panel showed a creatinine of 1.02, potassium was 3.5, liver enzymes were normal. Lactic acid was elevated at 2.8, CT of the abdomen and pelvis was carried out which showed right-sided hydronephrosis and perinephric stranding. There were no signs of obstruction however. There were noted to be hepatic lesions and vertebral lesions secondary to his metastatic prostate cancer. Patient was given IV Dilaudid and Zofran and fluids, his symptoms improved, he was given IV Zosyn due to concerns of pyelonephritis. Patient was admitted to [place] [address], he continued on IV fluids but continued to have right- sided abdominal pain radiating into his right flank area. Urology was consulted, a right kidney stent was placed with resolution of the patient's right sided abdominal and flank pain. Patient did spike a fever during his hospitalization and antibiotics were started, however, the patient's blood culture and urine culture was negative for growth. The etiology of the patient's elevated temperature was not known but it was felt to be secondary to a urinary tract infection. On 07/25/18, patient was seen and examined and felt to be in stable condition for discharge home. Physical exam: On examination he appeared in good health and spirits. Vital signs as documented. Skin warm and dry and without overt rashes. Neck without JVD. Lungs clear. Heart exam notable for regular rhythm, normal sounds and absence of murmurs, rubs or gallops. Abdomen unremarkable and without evidence of organomegaly, masses, or abdominal aortic enlargement. Extremities nonedematous. Neuro: Cranial nerves II through XII are grossly intact, sensation to light touch and pinprick present, there are no neurological deficits noted to motor function. Psych: Patient is alert and oriented x3, he does not seem anxious or depressed. Patient was discharged in stable condition on 07/25/18 - Physical Exam Vital Signs Temp Pulse Resp BP Pulse Ox 98.7 F 90 16 166/76 H 94 07/25/18 13:48 07/25/18 13:48 07/25/18 13:48 07/25/18 13:48 07/25/18 13:48 Oxygen Flow Rate (L/min) 1 Oxygen Delivery Method Room Air Weight: 86.5 kg Body Mass Index (BMI) 28.1 Intake and Output for Last 24 Hours 07/23/18 07/24/18 07/25/18 23:59 23:59 23:59 Intake Total 2045 / 6 2886 / 2886 1511 / 1511 Output Total 1100 / 1100 900 / 900 Balance 2045 / 6 1786 / 1786 611 / 611 Microbiology Past 72 Hours 07/23/18 19:03 Urine Culture - Preliminary Urine, Cystoscopy Culture exhibits no growth. 07/22/18 05:50 Blood Culture - Preliminary Blood Culture (Wb) - Right Hand No growth in 48 hours. 07/22/18 06:00 Blood Culture - Preliminary Blood Culture (Wb) - Port No growth in 48 hours. 07/20/18 22:00 Urine Culture - Final Urine, Clean Catch Culture exhibits no growth. Discharge Activity: Return to Normal Activity Weight Bearing Status: Full weight bearing Home Medications: Medications to take at Discharge Lidocaine/Prilocaine [Lidocaine-Prilocaine Cream] 1 oint TOPICAL PRN PRN 11/30/14 Ondansetron [Zofran Odt] 8 mg PO Q8H PRN PRN 11/30/14 Ergocalciferol (Vitamin D2) [Drisdol] 50,000 unit PO QWEEK 07/20/18 Ferrous Sulfate [Iron] 325 mg PO BID 07/20/18 Leuprolide Acetate [Eligard] 22.5 mg SQ UD 07/20/18 Paroxetine HCl 10 mg PO DAILY 07/20/18 Pembrolizumab [Keytruda] 100 mg IV UD 07/20/18 Prednisone 5 mg PO DAILY 07/20/18 Cephalexin [Keflex] 500 mg PO TID #12 cap 07/25/18 Nicotine [Nicoderm] 14 mg TRANSDERM. DAILY #30 patch 07/25/18 Oxycodone [Oxyir] 5 mg PO Q6H PRN PRN 7 Days #20 tab 07/25/18 Following Prescrptions Were Given to Patient: Oxycodone [Oxyir] 5 mg PO Q6H PRN PRN 7 Days #20 tab PRN Reason: Severe Pain (-07/14) Nicotine [Nicoderm] 14 mg TRANSDERM. DAILY #30 patch Cephalexin [Keflex] 500 mg PO TID #12 cap Primary Care Physician: Jerri Prieto,Out of [NON-STAFF] - Please Follow Up With: Fernando Pandey DO When: as directed Please Follow Up With: Modesto Laguerre MD When: as directed Disposition: Home Minutes spent on discharge:: 32 Patient Condition:: Stable Medical Necessity - Tobacco Use Smoking Status: Current every day smoker Tobacco Use: Cigarettes Meaningful Use Info Meaningful Use Diagnoses (Choose all that apply): None applicable Code Visit Inpatient E&M: 50590 Disch Hosp
--- NOTE | 2018-07-26 13:52 | CASEMGMT ---
RN GASTON DC Phone Call. DC Date 07.25.2018 DC Disposition: Home Intro role of CM to patient's . She states pt is doing well, no questions re: f/u appointments, prescriptions or instructions. Physician office called today for f/u appointment. No needs identified. Holly POWELLN RN ACM
== END 2018-07-25 14:00 | disposition home or self-care (01) | DRG 660 ==
LOC: ED 21:46 → MS3 22:03
PROVIDERS: Urology; Admitting Provider Hospitalist; Emergency Provider Emergency Medicine; Family Provider Family Medicine; PCP Family Medicine; Visit Provider Internal Medicine
PROC: 0T768DZ Dilation of Right Ureter with Intraluminal Device, Via Natural or Artificial Opening Endoscopic (ICD-10-PCS; principal; 2018-07-23 08:35)
DX: N13.30 Unspecified hydronephrosis (principal); C79.51 Secondary malignant neoplasm of bone; C78.7 Secondary malignant neoplasm of liver and intrahepatic bile duct; C77.5 Secondary and unspecified malignant neoplasm of intrapelvic lymph nodes; C61 Malignant neoplasm of prostate; N39.0 Urinary tract infection, site not specified; D63.8 Anemia in other chronic diseases classified elsewhere; F32.9 Major depressive disorder, single episode, unspecified; Z92.3 Personal history of irradiation; F17.210 Nicotine dependence, cigarettes, uncomplicated; E87.6 Hypokalemia; K59.00 Constipation, unspecified; B96.89 Other specified bacterial agents as the cause of diseases classified elsewhere
CPT/HCPCS: 36591; 71045; 74177; 74178; 76000; 80048; 80053; 81001; 83605; 83690; 85025; 85610; 85730; 87040; 87086; 94640; 97802; 99281; 99406; J7030; J7050; Q9967; A4216; C1769; C2617; J2405

== ENCOUNTER → 2018-08-23 14:26 | Outpatient (CLI) | payer OTHER, SELFPAY ==
--- NOTE | 2018-08-23 08:00 | PROSBIL_PTH ---
PATIENT: OSWALD GARCIA Sr. LOC: [facility] U#:[id number] AGE/SX: 69/M ROOM: RE08/23/[address]: Dr. Fernando Pandey DO : 1955 BED: DIS: SPEC #: [id number] RECD: 08/23/18 15:49 STATUS: NADER COLTEN #: [id number] DILMA: 08/23/18 08:[address]: Modesto Laguerre DEPT: SURGICAL PATHOLOGY RECD BY: Pernell Clements ENTERED: 08/24/18 11:42 SP TYPE: PROST BX CANDACE DR: MD Dr. Fernando Osorio DO Tissues: A - PROSTATE RIGHT B - PROSTATE RIGHT C - PROSTATE RIGHT D - PROSTATE LEFT E - PROSTATE LEFT F - PROSTATE LEFT Procedures: PROSTATE BX HEADER OPERATION: Prostate biopsy PRE-OP DIAGNOSIS: Elevated PSA TISSUE SUBMITTED: A - Right apex, B - Right mid, C - Right base, D - Left apex, E - Left mid, F - Left base MICROSCOPIC DIAGNOSIS A. Right prostate, apex, core biopsy: Prostatic adenocarcinoma: Sav grade: 3+4=7 Number of cores involved: 1 out of 1 Proportion of tissue involved: <5% Perineural invasion: Not identified. Greatest tumor length: <0.1 cm. See comment. B. Right prostate, mid, core biopsy: Prostatic adenocarcinoma: Yoder grade: 3+4=7 Number of cores involved: 2 out of 2 Proportion of tissue involved: ~30% Perineural invasion: Not identified. Greatest tumor length: 0.3 cm C. Right prostate, base, core biopsy: Prostatic adenocarcinoma: Sav grade: 4+4=8 Number of cores involved: 1 out of 2 Proportion of tissue involved: <5% Perineural invasion: Not identified. Greatest tumor length: <0.1 cm Focal high-grade prostatic intraepithelial neoplasia (HGPIN). See comment. D. Left prostate, apex, core biopsy: Prostatic adenocarcinoma: Yoder grade: 3+4=7 Number of cores involved: 1 out of 2 Proportion of tissue involved: <5% Perineural invasion: Not identified. Greatest tumor length: 0.1 cm See comment. E. Left prostate, mid, core biopsy: Prostatic tissue, negative for malignancy. F. Left prostate, base, core biopsy: Focal high-grade prostatic intraepithelial neoplasia (HGPIN). SJ:magen 08/25/18 COMMENT A, C & D - Immunohistochemistry ([id number]) supports the above diagnosis. Please make reference to previous specimen ([id number]), right prostate, mid, right prostate, base, left prostate, apex, left prostate, mid and left prostate, base with diagnosis of prostatic adenocarcinoma. As per patient's EMR, the patient is undergoing treatment with androgen deprivation therapy for prostate carcinoma. MICROSCOPIC DESCRIPTION Slides are reviewed. GROSS DESCRIPTION A - Received is one container designated prostate, right apex. The specimen consists of one elongated fragment of light roman-white soft tissue measuring 1 cm in length and 0.1 cm in diameter. The specimen is totally submitted in one cassette. B - Received is one container designated prostate, right mid. The specimen consists of two elongated fragments of light roman-white soft tissue each measuring 1 cm in length and 0.1 cm in diameter. The specimen is totally submitted in one cassette. C - Received is one container designated prostate, right base. The specimen consists of two elongated fragments of light roman-white soft tissue measuring 1 and 1.5 cm in length and 0.1 cm in diameter. The specimen is totally submitted in one cassette. D - Received is one container designated prostate, left apex. The specimen consists of three elongated fragments of light roman-white soft tissue measuring 1.5 and 2 cm in length and 0.1 cm in diameter. The specimen is totally submitted in one cassette. E - Received is one container designated prostate, left mid. The specimen consists of one elongated fragment of light roman-white soft tissue measuring 0.8 cm in length and 0.1 cm in diameter. The specimen is totally submitted in one cassette. F - Received is one container designated prostate, left base. The specimen consists of four elongated fragments of light roman-white soft tissue measuring 0.3 to 1 cm in length and 0.1 cm in diameter. The specimen is totally submitted in one cassette. / SJ:rg 08/24/18 TC:0 [facility]: [id number] [phone]
--- NOTE | 2018-08-23 08:00 | PROSBIL_PTH ---
PATIENT: OSWALD GARCIA Sr. LOC: [facility] U#:[id number] AGE/SX: 69/M ROOM: RE08/23/[address]: Dr. Fernando Pandey DO : 1955 BED: DIS: SPEC #: [id number] RECD: 08/23/18 15:49 STATUS: ENT REQ #: [id number] DILMA: 08/23/18 08:[address]: Modesto Laguerre DEPT: SURGICAL PATHOLOGY RECD BY: Pernell Clements ENTERED: 08/24/18 11:42 SP TYPE: PROST BX OTHR DR: MD Dr. Fernando Osorio DO Tissues: A - PROSTATE RIGHT B - PROSTATE RIGHT C - PROSTATE RIGHT D - PROSTATE LEFT E - PROSTATE LEFT F - PROSTATE LEFT Procedures: No Tissue Found
[2018-08-23 14:48] LABS: Absolute Lymphocyte Count 0.93 X10^3/ul (0.83-4.51); Absolute Neutrophil Count 6.5 X10^3/uL (2.0-7.7); Basophil# 0.03 X10^3/uL; Basophil% 0.4 % (0-1); Eosinophil# 0.15 X10^3/uL; Eosinophils% 1.9 % (0-5); Hematocrit 38.2 % (40-54); Hemoglobin 12.2 g/dl (13.0-16.5); Lymphocyte # 0.93 X10^3/ul (4.0); Lymphocyte % 11.6 % (19-41); Mean Corp Hgb Conc 31.9 g/gl (32-36); Mean Corpuscular Hgb 31.5 pg (27.0-32.0); Mean Corpuscular Volume 98.7 fL (80-94); Mean Platelet Vol. 10.8 fl (6.2-12.0); Neutrophil # 6.51 X10^3/uL (2.7-7.7); Platelet Count 376 K/mm3 (150-450); RBC Distribution Width CV 13.2 % (11.6-14.6); RBC Distribution Width SD 47.7 fl (35.1-43.9); Red Blood Count 3.87 M/mm3 (4.6-6.2)
[2018-08-23 14:49] LABS: POSITIVE COUNT NO; POSITIVE DIFFERENTIAL NO; POSITIVE MORPHOLOGY NO
== END ==
PROVIDERS: Family Provider Family Medicine; PCP Family Medicine; Visit Provider Internal Medicine Hematology & Oncology
DX: C61 Malignant neoplasm of prostate (principal); C79.51 Secondary malignant neoplasm of bone; R10.84 Generalized abdominal pain
CPT/HCPCS: 85025; 88305; 88341; 88342; G0416

== ENCOUNTER 2018-12-01 05:56 | Day surgery (SDC) | payer MEDICARE, OTHER, SELFPAY ==
--- NOTE | 2018-11-30 11:53 | PCM.HP.BLA ---
History and Physical Date of Admission: 12/01/18 I have hydronephrosis (Stent Inserted). HPI: OSWALD GARCIA is a 63 year-old male established patient who is here for hydronephrosis (Stent Inserted). His stent was placed 3 months ago . The problem is on the right side. The stent was placed for a compression from mass. Patient denies kidney stone, ureteral stone, ureteral stricture, and blood clot. He had the following x-rays done: CT Scan. He is currently doing well. He does have urgency. He does have frequency. He does not have dysuria. CC/HPI: Patient returns, 63-year-old male with metastatic prostate cancer, and developed right hydronephrosis had to have a right stent placed which resolved is right severe flank pain, after this he was discharged the hospital. He's now stop zytiga and he is going on to further therapy for his prostate cancer which unfortunately is progressing. Continue with hormone deprivation therapy he'll receive a shot today. ALLERGIES: None MEDICATIONS: Calcium Zometa PSH: Cystoscopy Insert Stent - 07/23/2018 Depolupron 1 3 4 Month - 08/09/2018, 05/06/2018, 02/01/2018, 11/02/2017, 07/30/2017, 04/27/2017, 01/20/2017, 2017, 07/15/2016, 2015, 2015, 2015 Injection, Degarelix, 1 Mg - 2013 Prostate Needle Biopsy - 2013 Transrectal Biopsy US - 2013 NON- PSH: Colonoscopy - about 2011 Patient not documented to have received pneumococcal vaccination PMH: Other hydronephrosis - 08/09/2018 Malignant neoplasm of prostate - 04/27/2017, - 01/20/2017, - 2015, - 2015, - 2014, - 2015, - 2015, - 2015, - 2013, - 2013, - 2013 ? Sav Score: 10 ? Clinical Staging: [id number] Elevated prostate specific antigen [PSA] - 2015, - 2015, - 2014, - 2014, - 2015, - 2015, - 2014, - 2013, - 2013, - 2013, - 2013 Metastatic Bony Neoplasm - 2015, - 2015, - 2015, - 2015, - 2015, - 2015, - 2015, - 2013, - 2013, - 2013 Nodular prostate with lower urinary tract symptoms - 2015, - 2014, - 2013, - 2013, - 2013, - 2013 Male erectile dysfunction, unspecified - 2014, - 2013, - 2013, - 2013 Nodular prostate without lower urinary tract symptoms - 2014 Urethral stricture, unspecified NON- PMH: Other osteoporosis without current pathological fracture - 2015, - 2015, - 2014, - 2014, - 2014, - 2013 Hyperlipidemia, unspecified Immunizations: None FAMILY HISTORY: Prostate Cancer - Father SOCIAL HISTORY: Marital Status: Preferred Language: [place] Islander; Ethnicity: Not Or ; Race: Black or Current Smoking Status: Patient smokes. Has smoked since 01/03/1978. Smokes 1/2 pack per day. Tobacco Use Assessment Completed: Used Tobacco in last 30 days? Smoking cessation counseling was provided. Does not use smokeless tobacco. Drinks 1 drink per month. Does not use drugs. Drinks 2 caffeinated drinks per day. Has not had a blood transfusion. REVIEW OF SYSTEMS: Constitutional: Patient denies fever, chills, weight loss, and weight gain. Genitourinary: Patient reports weak stream/scanty. Patient denies frequent urination, urinary retention, get up at night to void, leakage of urine, painful urination, blood in the urine, frequent uti's, history of stones, difficulty starting stream, and bedwetting. Notes: Reviewed previous review of systems 02/01/2018. No changes. VITAL SIGNS: 11/11/2018 11:17 AM Weight 208 lb / 94.35 kg Height 69 in / 175.26 cm BP 124/66 mmHg BMI 30.7 kg/m? - BMI Counseling was provided. MULTI-SYSTEM PHYSICAL EXAMINATION: Constitutional: Well-nourished. No physical deformities. Normally developed. Good grooming. Neck: Neck symmetrical, not swollen. Normal tracheal position. Respiratory: No labored breathing, no use of accessory muscles. Cardiovascular: Normal temperature, normal extremity pulses, no swelling, no varicosities. Lymphatic: No enlargement of neck, axillae, groin. Skin: No paleness, no jaundice, no cyanosis. No lesion, no ulcer, no rash. Neurologic / Psychiatric: Oriented to time, oriented to place, oriented to person. No depression, no anxiety, no agitation. Gastrointestinal: No mass, no tenderness, no rigidity, non obese abdomen. Eyes: Normal conjunctivae. Normal eyelids. Ears, Nose, Mouth, and Throat: Left ear no scars, no lesions, no masses. Right ear no scars, no lesions, no masses. Nose no scars, no lesions, no masses. Normal hearing. Normal lips. Musculoskeletal: Normal gait and station of head and neck. PAST DATA REVIEWED: Source Of History: Patient Lab Test Review: PSA Records Review: Pathology Reports, Previous Patient Records Urine Test Review: Urinalysis X-Ray Review: C.T. Abdomen/Pelvis: Reviewed Films. Reviewed Report. Discussed With Patient. 05/05/18 11/26/17 09/03/17 01/19/17 12/18/16 05/14/16 02/10/16 12/07/15 PSA Total PSA 71.60 mg/dl 33.79 29.17 23.15 mg/dl 33.09 mg/dl 10.11 mg/dl 18.26 mg/dl 95.64 mg/dl PROCEDURES: Urinalysis - 06894 Dipstick Dipstick Cont'd Specimen: Voided Blood: Neg Appearance: Clear pH: 5.0 Color: Yellow Protein: Neg Glucose: Normal Urobilinogen: Neg Bilirubin: Neg Nitrites: Neg Ketones: Neg Leukocyte Esterase: Neg Eligard (3month) - J9217, 69208 SQ injection administered with 1.5ml of lidocaine with epi into RLQ pt tolerated injection well Qty: 1 Adm. By: KACEY MEADE Unit: kit Lot No [id number] Route: SQ Exp. Date 03/05/2020 Freq: Q3M Mfgr.: TOLMAR Site: None ASSESSMENT: ICD-10 Details 1 : Malignant neoplasm of prostate - C61 2 Elevated prostate specific antigen [PSA] - R97.2 3 Metastatic Bony Neoplasm - C79.51 4 Nodular prostate with lower urinary tract symptoms - N40.3 5 Other hydronephrosis - N13.39 PLAN: Medications New Meds: Flomax 0.4 mg capsule 1 capsule PO Q HS #30 5 Refill(s) Document Letter(s): Created for Patient: Clinical Summary Notes: 63-year-old male with history of prostate cancer, positive bony metastatic disease, right hydronephrosis status post stent, rising PSA despite castrate levels of testosterone. Stop zytiga. Continue with ADT follow-up in three months for next Eligard, and plan to change stent at [facility].
[2018-12-01 06:48] VITALS: BP 133/77; PULSE 90; RESP 16; TEMP 36.7; O2SAT 92; BMI 26.2
--- NOTE | 2018-12-01 07:28 | DCINST_ITS ---
Discharge Diet: Light diet - advance as tolerated Discharge Activity: Return to Normal Activity Allergies/Adverse Reactions: Allergies aspirin Adverse Reaction (Verified 07/20/18 17:52) Upset Stomach Medications to take at Discharge Ergocalciferol (Vitamin D2) [Drisdol] 50,000 unit PO QWEEK 07/20/18 Leuprolide Acetate [Eligard] 22.5 mg SQ UD 07/20/18 Prednisone 40 mg PO DAILY 07/20/18 Methadone HCl [(None)] 5 mg PO BID 11/29/18 Methadone HCl [(None)] 10 mg PO QHS 11/29/18 Tamsulosin HCl [Flomax] 0.4 mg PO QHS 11/29/18 Primary Care Physician: Brenda Feliz MD [Primary Care Provider] - Test Results: Test results from this visit will be discussed in further detail at your follow- up appointment, if applicable. Please Follow Up With: Modesto Laguerre MD When: Keep appt for next injection in 3 months
--- NOTE | 2018-12-01 07:50 | PCM.OPRPT ---
Report of Operation Date of Procedure: 12/01/18 Pre-Operative Diagnosis: Right hydronephrosis and obstruction from prostate cancer Post-Operative Diagnosis: The same and right hydronephrosis Surgery/Procedure Performed:: Cystoscopy, removal of the right stent, right retrograde pyelogram, interpretation of fluoroscopic images, right stent placement Description of Surgical Findings:: 63-year-old male who has a history of of advanced metastatic prostate cancer was developed obstruction from adenopathy from his prostate cancer in the right side. He presented to the hospital several months ago with severe right flank pain right hydronephrosis eventually a stent was placed and the pain resolved he now presents to the office and to the operating room here today for a stent change stent is due to be changed due to encrustation. He had a recent CAT scan done at this still demonstrates some hydronephrosis in the right side as well a new stent will help drain his kidney. He has chronic pain from his prostate cancer. 63-year-old male was taken back to the operating room after smooth induction of MAC local he was placed in dorsolithotomy position the penis and testicles are prepped and draped in usual sterile fashion, I used a 21 [place] rigid cystourethroscope and went to the urethra the entire length of the urethra is normal the sphincter was intact and normal the prostate was normal with no significant obstruction once I got inside the bladder identified the stent coming from the right ureteral orifice the stent was fairly encrusted with stone particles attached to the stent around the curl I then grabbed the stent with a grasper pulled it out all the way and then went back into the bladder with the cystoscope identified the right ureteral orifice again advanced a 0.035 hydrophilic Glidewire up the right ureter. Over the Glidewire advanced a 5 mm Pollack catheter. Then I pulled out the wire we then injected contrast and performed fluoroscopy to evaluate the kidney I could see the ureter going up with dilated ureter and I could see hydronephrotic kidney filling with contrast and looking at the x-ray images. Still looking at significant hydronephrosis while the change the new stent, we then flushed the Pollack catheter with saline to clear out the contrast I then advanced a wire, 0.035 hydrophilic Glidewire up the Pollack catheter is coiled up in the kidney. Backloaded the Pollack catheter off the wire and then advanced a new stent over the wire it was a 6 [place]ican by 26 cm stent. Once the stent was in good position I pulled on the wire and the stent coiled in the kidney and the bladder I then fixed the position of the stent with a grasper and the bladder and then the bladder was drained. At the end of the procedure the patient's anesthetic was reversed and he will follow-up in my office in 3 months for another hormone deprivation injection and will need another stent change at that point as well. The stent had been heavily calcified with particles. Patient was taken back to PACU in good condition I went and spoke to the family. Type of Anesthesia:: Local MAC Drains: stent 6 fr x 26 cm - Admit VTE Documentation VTE Present on Admission: No VTE Mechan Device Prophylaxis: SCD's
[2018-12-01 08:00] VITALS: BP 125/73; BP 133/77; PULSE 92; RESP 16; TEMP 37; O2SAT 94
[2018-12-01 08:05] VITALS: BP 128/72; BP 133/77; PULSE 85; RESP 16; O2SAT 94
[2018-12-01 08:10] VITALS: BP 126/77; BP 133/77; PULSE 85; RESP 16; O2SAT 92
[2018-12-01 08:15] VITALS: BP 118/74; BP 133/77; PULSE 85; RESP 16; TEMP 37; O2SAT 94
[2018-12-01 09:18] VITALS: BP 133/77
== END 2018-12-01 09:19 | disposition home or self-care (01) ==
LOC: SDC 06:03 → AC 06:03
PROVIDERS: Family Provider Family Medicine; PCP Family Medicine; Referring Provider Urology; Visit Provider Urology
DX: C61 Malignant neoplasm of prostate (principal); C79.51 Secondary malignant neoplasm of bone; N40.3 Nodular prostate with lower urinary tract symptoms; N13.39 Other hydronephrosis; G89.29 Other chronic pain; E78.5 Hyperlipidemia, unspecified; F12.10 Cannabis abuse, uncomplicated; F17.210 Nicotine dependence, cigarettes, uncomplicated; Z80.42 Family history of malignant neoplasm of prostate; Z79.52 Long term (current) use of systemic steroids
CPT/HCPCS: 52332; 76000; J7120; A4216; C1769; C2617; J2405

== ENCOUNTER 2018-12-27 11:50 | Observation (INO) | payer MEDICARE, OTHER, SELFPAY ==
[2018-12-27 11:52] VITALS: BP 148/76; PULSE 112; RESP 24; TEMP 36.6; O2SAT 99; BMI 25.9
--- NOTE | 2018-12-27 13:33 | CT_ITS ---
STUDY: CT ABDOMEN AND PELVIS WITHOUT CONTRAST REASON FOR EXAM: Male, 63 years old. One-week history of left flank pain. Patient has a history of metastatic prostate cancer. RADIATION DOSAGE (If Supplied By Facility): CTDIvol = ( 7.41 ) mGy, DLP = ( 350.09 ) mGycm TECHNIQUE: Transaxial images were obtained from the dome of the diaphragm to the symphysis pubis without oral contrast, and without intravenous contrast. Sagittal and coronal images were reconstructed. Individualized dose optimization techniques were used for this CT. COMPARISON: Comparison is made with prior study dated July 23, 2018. FINDINGS: Residual increased markings with areas of cartilage in the right lower lobe although there has been marked improvement at both lung bases as compared to prior study. The visualized portions of the heart are within normal limits. Stable well-defined hypodensities scattered throughout the liver suggestive of multiple intrahepatic cysts. Normal gallbladder and extrahepatic biliary system. Normal spleen. Focal calcifications in the tail portion of the pancreas. Normal bilateral adrenal glands. A right-sided double-J stent catheter is seen. There is a moderate to severe degree of right ideal calyceal dilatation. The distal tip of the double J stent is seen at the bladder base. Normal left kidney. There is a small hiatal hernia. Normal small intestine. Normal colon. The appendix is visualized and appears normal. There is diffuse atherosclerotic calcification of the abdominal aorta, without a demonstrated aneurysm. Normal inferior vena cava. There is retroperitoneal lymphadenopathy with enlarged nodes greater than 10-15mm in the short axis. This has progressed as compared to prior study. The urinary bladder is distended. There is a left-sided inguinal hernia containing adipose tissue. 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 CT/Abdomen/Pelvis without Cont IMPRESSION: Progressive right hydronephrosis. Progressive enlargement of the retroperitoneal lymphadenopathy. Stable hepatic cysts. Stable osteoblastic metastasis. Electronically Signed: David Perez, at 15:03 EDT , Service support ,
[2018-12-27 13:56] LABS: AST(SGOT) 32 U/L (15-37); Alanine Aminotransfer ALT/SGPT 23 U/L (16-61); Albumin, Serum 3.3 g/dL (3.2-5.0); Alkaline Phosphatase 496 U/L (45-117); Anion Gap 6 (5-15); BUN 12 mg/dL (7-18); BUN/Creat Ratio 12.5 RATIO (10-20); Calcium,Total 7.9 mg/dL (8.5-10.1); Chloride 110 mmol/L (98-107); Creatinine, Serum 0.96 mg/dL (0.70-1.30); EST Glomerular Filtration Rate 85 mL/min (>60); Est Glom Filt Rate - Afr Amer 102 mL/min (>60); Estimated Creatinine Clearance 79.78 ml/min; Globulin 3.3 g/dL (2.2-4.2); Glucose 89 mg/dL (74-106); Lipase 339 U/L (73-393); Potassium 3.4 mmol/L (3.5-5.1); Protein, Total 6.6 g/dL (6.4-8.2); Sodium Level 140 mmol/L (136-145)
[2018-12-27] MEDS: Morphine 2 MG/ML Syringe IV (14:09)
[2018-12-27 14:21] LABS: Hematocrit 26.6 % (40-54); Hemoglobin 8.5 g/dl (13.0-16.5); Mean Corpuscular Hgb 32.1 pg (27.0-32.0); Mean Corpuscular Volume 100.4 fL (80-94); Mean Platelet Vol. 10.8 fl (6.2-12.0); Platelet Count 112 K/mm3 (150-450); RBC Distribution Width CV 18.5 % (11.6-14.6); RBC Distribution Width SD 67.6 fl (35.1-43.9); Red Blood Count 2.65 M/mm3 (4.6-6.2)
[2018-12-27 14:26] LABS: POSITIVE COUNT YES; POSITIVE DIFFERENTIAL NO; POSITIVE MORPHOLOGY YES
[2018-12-27 14:27] LABS: Differential Indicated MANUAL DIFF
[2018-12-27 14:29] LABS: Bacteria 0 SEEN /hpf (None Seen); Mucous, Urine 0 SEEN /hpf (<or=2+)
[2018-12-27 14:32] LABS: Color, Urine Yellow (Yellow); Glucose, Dipstick Normal (Normal); Ketone-Dipstick 5 mg/dl (Negative); Leukocyte Esterase-Dipstick 25 /ul (Negative); Nitrite-Dipstick Negative (Negative); Occult Blood-Urine 25 /ul (Negative); Protein-Dipstick 30 mg/dl (Negative); Urine Bilirubin Dipstick 1 mg/dL (Negative); Urine Clarity Sl. Cloudy (Clear); Urine Urobilinogen 1 mg/dl (Normal)
[2018-12-27 14:43] LABS: Red Blood Cells-Urine 0-5 SEEN /hpf (0-5); Squamous Epithelial Cells - UA 0-5 SEEN /hpf (0-5); White Blood Cells 0-5 SEEN /hpf (0-5)
[2018-12-27 14:45] LABS: Lactic Acid 1.1 mmol/L (0.4-2.0)
[2018-12-27 14:48] VITALS: BP 141/81; PULSE 95; RESP 12; O2SAT 93
--- NOTE | 2018-12-27 14:55 | ED.VISSUMM ---
- ER Visit Summary Date of Service: 12/27/18 Chief Complaint: Left flank pain History of Present Illness: The patient is a 63 M who presents with left flank pain that has been waxing and waning over the past couple days. states the pain is gradually gotten worse. states that the patient has not had a bowel movement in the past week. Patient describes pain as aching. Patient denies any nausea or vomiting. Patient denies any diarrhea, melena, or hematochezia. Patient denies any dysuria or hematuria. Physical Examination: Vital signs are stable except for mild tachycardia of 112. Patient is afebrile. Patient is in no acute distress. Oral mucosa is pink and moist. Neck is supple. Trachea is midline. There is no JVD noted. Heart was regular rate and rhythm. Lungs are clear and equal bilateral. Abdomen is soft. Bowel sounds are normal. There is some left flank and CVA tenderness. There is no rebound or guarding noted. Cranial nerves II through XII are intact. There are no focal motor or sensory deficits noted. Test Results: CBC shows an anemia with hemoglobin of 8.5. This was decreased from 12.2 last August. Platelets were 112. Lactate was normal. Alk phos was elevated at 496. Urinalysis does not show any evidence of urinary tract infection. Basic metabolic profile was essentially within normal limits. Lactate was normal. CT scan of the abdomen and pelvis shows progressive right hydronephrosis and progressive enlargement of the retroperitoneal adenopathy. Emergency Department Course and Treatment: Patient was given a dose of morphine here. Patient was allowed to take his home medications. Patient was feeling better on reevaluation. Patient was still complaining of constipation. A soapsuds enema was ordered. Case was discussed with Dr. Mejia, hospitalist. He was in to evaluate the patient. He discussed the case with Dr. Laguerre. He will follow-up with the patient as an outpatient for the hydronephrosis. Dr. Mejia also discussed the case with Dr. Pandey. His hemoglobin has been declining with his cancer treatment. If the patient gets good results from the enema and his pain improves. He will be able to be discharged. He will follow-up with Dr. Pandey in the office tomorrow. Patient and family understood and were agreeable with the plan. All questions were answered. Patient wants to wait to have a bowel movement before he goes home. Patient also has MiraLAX and magnesium citrate at home along with a stool softener. Disposition: Likely discharge home Impression: 1. Anemia 2. Hydronephrosis 3. History of prostate cancer with bone metastases This note was generated with [employer] dictation software. It may contain incorrect words, spelling, and punctuation that were not noted in review of the chart prior to signing ED Disposition - Plan for ED Patient: Disposition: Home or Assisted Living Diagnosis: Anemia, Hydronephrosis, right, Prostate cancer metastatic to bone Instructions: ED Constipation, ED Abdominal Pain Unkn Cause Male Prescriptions: RX: Lactulose [Chronulac] 10 gm PO DAILY #150 ml Referrals: Brenda Feliz MD [Primary Care Provider] -
[2018-12-27 15:16] LABS: Anisocytosis 2+; Lymphocyte 10 % (19-41); Monocyte 4 % (0-10); Neutrophil-Band 7 % (0-5); Neutrophil-Segmented 79 % (47-70); Platelet Estimate SLT DEC (ADEQ); Total Cells Counted 100 (MANUAL DIFF)
[2018-12-27 15:17] LABS: Polychromasia 1+; Schistocytes RARE
[2018-12-27 15:19] LABS: Absolute Neutrophil Count 7.7 X10^3/uL (2.0-7.7); Neutrophil # 7.74 X10^3/uL (2.7-7.7)
[2018-12-27 15:33] LABS: Absolute Nucleated RBC Count 3.07 10^3/uL (0-5)
[2018-12-27 16:06] VITALS: BP 146/80; PULSE 93; RESP 12; O2SAT 97
--- NOTE | 2018-12-27 16:46 | CASEMGMT ---
RN CM Assessment Introduced role of RN CM to patient and Rosalia at bedside.? Patient is alert, oriented and able?to participate in RN CM Assessment. ?Care providers, pharmacy, and demographics verified. Presentation: Left Flank Pain. H/o Prostate CA with Bone Mets. Findings: Progressive Right Hydronephrosis, Progressive enlargement of retroperitoneal lymphadenopathy, Stable Osteoblastic mets. Re-Admit: No Barriers/Issues: Patient and state interested on information on Palliative Care, this CM discussed basic info and provided Pamphlet to read over and agrees with [employer] f/u on Palliative Care Referral Decision. states she thinks Palliative Care would be good because she is doing all assistance, patient has a near by Cousin that could help. States that it is getting difficult for her with bathing patient d/t not having proper DME and baths tend to help patient's pain. PCP: Brenda Feliz Specialists: Uro- [place], Onc- Dr Pandey @[facility], Radiation- Dr Malik @[facility], [facility]- Dr Oden Preferred Pharmacy: [facility] Insurance: MMO Rx Benefit: Yes? ?LNOK: Rosalia Alejo LW/HPOA: Yes states both- and Rosalia Alejo is HPOA, HPOA noted On file at [facility]. Living Arrangements:? Lives with in a 2 story home, no steps to enter home. Patient bedroom on top ca. ADL?s: Ambulates independently and requires assistance with all ADL's. Transportation: Patient drives, to transport on [place] DME: States just received prescription for a shower chair from Onc Dr Pandey and checking with insurance on a slide chair. HHC: None SNF: None Goal: Home DC PLAN: Home possibly with Palliative Care. MATTHEW Montejo
[2018-12-27 18:00] VITALS: BP 143/76; PULSE 89; RESP 12; O2SAT 98
[2018-12-27 19:46] VITALS: BMI 26.0
[2018-12-27] MEDS: morphine 8 MG/ML Syringe 6 MG IV (21:00)
[2018-12-27 21:06] VITALS: BP 167/91; PULSE 87; RESP 20; O2SAT 97
[2018-12-27 22:00] VITALS: BP 161/86; PULSE 83; RESP 18; TEMP 37.2; O2SAT 95
[2018-12-27 22:18] VITALS: BMI 24.4
--- NOTE | 2018-12-27 22:52 | HP.PCM_ITS ---
Problem List (1) Left flank pain Status: Acute (2) Narcotic induced constipation Status: Acute History of Present Illness Date of Admission: 12/27/18 Chief Complaint: Chronic induced constipation, left flank pain The patient is a 63 year old M was seen in the emergency room at [facility] with a chief complaint of left flank pain and severe constipation-patient is not had a bowel movement in 10 days, he takes methadone chronically for metastatic prostate cancer. Patient denies any vomiting. Workup in the emergency room revealed a normal white blood cell count, hemoglobin was 8.5, potassium was 3.4, alkaline phosphatase was 496, urinalysis was unremarkable, CT of the abdomen and pelvis was performed which showed a progressive right hydronephrosis as compared with previous CT of the abdomen, there was noted to be enlargement of the retroperitoneal lymphadenopathy, there is also noted to be osteoblastic metastases. Patient was given an enema in the emergency room without results, he was placed in observation status on PCU for severe narcotic induced constipation and left flank discomfort felt to be secondary to metastatic prostate cancer and severe narcotic induced constipation. Patient will be given Antoni, I talked at length with the patient and his about using medication specifically for narcotic-induced constipation-I urged him to ask his physician about these medications. I also talked to them about using lactulose as an outpatient. Past Medical History Past Medical History (Chronic Problems): Chronic Problems Prostate cancer metastatic to bone (Chronic) Allergies aspirin Adverse Reaction (Verified 12/27/18 11:52) Upset Stomach Home Medications: Ambulatory Orders Medication Instructions Recorded Ergocalciferol (Vitamin D2) 50,000 unit PO MO 07/20/18 [Drisdol] Leuprolide Acetate [Eligard] 22.5 mg SQ UD 07/20/18 Methadone HCl [(None)] 5 mg PO BID 11/29/18 Methadone HCl [(None)] 10 mg PO QHS 11/29/18 Tamsulosin HCl [Flomax] 0.4 mg PO QHS 11/29/18 Aspirin E.C. [Ecotrin] 81 mg PO DAILY@0800 12/27/18 Lactulose [Chronulac] 10 gm PO DAILY #150 ml 12/27/18 Omeprazole 40 mg PO DAILY 12/27/18 Promethazine HCl 25 mg PO PRN PRN 12/27/18 Sennosides [Senna] 17.2 mg PO BID PRN PRN 12/27/18 predniSONE tablet 40 mg PO DAILY 12/27/18 Surgical History: - - Port-A-Cath placement, right ureteral stent placement Psychiatric History: No pertinent psych hx Smoking Status: Current every day smoker Tobacco Use: Secondhand Alcohol: None Drugs: None - *Family History Maternal Family History: Family History (Last Updated 07/21/18 @ 03:52 by Rob Caldwell MD) Father Prostate CA Mother CVA (cerebral vascular accident) History Items: No pertinent history Paternal Family History: Family History (Last Updated 07/21/18 @ 03:52 by Rob Caldwell MD) Father Prostate CA Mother CVA (cerebral vascular accident) History Items: Cancer - Prostate cancer Review of Systems Constitutional: Denies: Anorexia, Chills, Fever, Night Sweats, Malaise, Weakness, Weight Change, Fatigue Eyes: Denies: Cataracts, Conjunctivae Inflammation, Double vision, Drainage HEENT: Denies: Difficulty Swallowing, Dysphasia, Ear Pain, Eye Pain, Hearing Changes, Nasal bleeding, Nasal Congestion, Post Nasal Drip Cardiovascular: Denies: Chest Pain, Claudication, Chest Pressure, Chest Tightness, Edema, Palpitations Respiratory: Denies: Cough, Hemoptysis, Shortness of Breath, Shortness of breath at rest, Shortness of breath upon exertion Gastrointestinal: Reports: Constipation. Denies: Abdominal Pain, Diarrhea, Hematemesis, Hematochezia, Nausea, Melena, Vomiting Genitourinary: Denies: Dysuria, Frequency, Hematuria, Hesitancy, Incontinence, Nocturia, Retention, Urgency Musculoskeletal: Reports: Back Pain. Denies: Foot Pain, Hand Pain, Joint Pain, Joint stiffness, Joint swelling, Joint Tenderness, Leg Pain, Neck Pain Skin: Denies: Dryness, Jaundice, Pruritis, Rash Neurological: Denies: Blurred vision, Double vision, Change in Speech, Slurred speech, Difficulty swallowing, Focal weakness, Headaches, Incoordination, Numbness, Tingling Psychiatric: Denies: Anxiety, Depression, Homicidal Ideations, Suicidal Ideations Endocrine: Denies: Change in Body Habitus, Heat/ Cold Intolerance, Polydipsia, Polyuria Hematologic/ Lymphatic: Denies: Adenopathy, Anemia, Easy Bruising, Easy Bleeding, Petechiae, Purpura VTE Information - Inpt Only VTE Present on Admission: No VTE Mechan Device Prophylaxis: None VTE Pharm Prophylaxis ordered?: Yes Patient Problems: Active and Suspected Problems Hydronephrosis, right (Acute) Anemia (Acute) Left flank pain (Acute) Narcotic induced constipation (Acute) - Physical Exam General: Alert, Oriented x3, Cooperative, No apparent distress, Well developed, Well nourished HEENT: Atraumatic, PERRLA, EOMI, Normocephalic Oral: Moist Mucosa Neck: Supple, No JVD, Negative Carotid Bruits, No Nuchal Rigidity, Trachea Midline, Thyroid Normal Size and Texture Lungs: Clear to auscultation, Normal air movement, No rhonchi, No wheeze, No rales Cardiovascular: Regular rate, Regular Rhythm, Normal S1, Normal S2, No murmurs, No Ectopic Activity, PMI Normal, No rub noted, No Gallop Abdomen: Bowel Sounds Present, Soft, Non Tender, Hypoactive Bowel Sounds, Distended - Generalized abdominal distention, No hernias noted Extremities: No clubbing, No cyanosis, No edema, Capillary Refill Less than 3 Seconds Skin: No rashes, No breakdown Musculoskeletal: No Tenderness to Palpation of Joints or Extremities, No Muscle Wasting Neurological: Cranial nerves II-XII grossly intact, Neuro grossly intact, Sensory exam intact to light touch and pain, Coordination normal Psych/Mental Status: Normal Affect, Appropriate, Alert and oriented to time, place, person, mood and affect Vital Signs Temp Pulse Resp BP Pulse Ox 98 F 87 20 H 167/91 H 97 12/27/18 11:52 12/27/18 21:06 12/27/18 21:06 12/27/18 21:06 12/27/18 21:06 Oxygen Delivery Method Room Air Weight: 75.1 kg Body Mass Index (BMI) 24.4 Laboratory Tests Past 24 Hrs 12/27/18 12/27/18 12/27/18 13:20 13:20 14:00 WBC 9.0 RBC 2.65 L Hgb 8.5 L Hct 26.6 L MCV 100.4 H MCH 32.1 H MCHC 32.0 RDW 18.5 H RDW Differential 67.6 H Plt Count 112 L MPV 10.8 Neut % (Auto) Not Reportable Absolute Neuts (auto) 7.7 Absolute Lymphs (auto) 0.90 Total Counted 100 Neutrophils % (Manual) 79 H Band Neutrophils % 7 H Lymphocytes % (Manual) 10 L Monocytes % (Manual) 4 Diff Path Review May foll Platelet Estimate SLT DEC Polychromasia 1+ Anisocytosis 2+ Schistocytes RARE Absolute Retic 3.07 Sodium 140 Potassium 3.4 L Chloride 110 H Carbon Dioxide 24.0 Anion Gap 6 BUN 12 Creatinine 0.96 Estim Creat Clear Calc 79.78 Est GFR (MDRD) Af Amer 102 Est GFR (MDRD) Non-Af 85 BUN/Creatinine Ratio 12.5 Glucose 89 Lactic Acid 1.1 Calcium 7.9 L Total Bilirubin 0.60 AST 32 ALT 23 Alkaline Phosphatase 496 H Total Protein 6.6 Albumin 3.3 Globulin 3.3 Albumin/Globulin Ratio 1.0 Lipase 339 Urine Color Urine Clarity Urine pH Ur Specific [place] Urine Protein Urine Glucose (UA) Urine Ketones Urine Occult Blood Urine Nitrite Urine Bilirubin Urine Urobilinogen Ur Leukocyte Esterase Urine RBC Urine WBC Ur Squamous Epith Cells Urine Bacteria Urine Mucus 12/27/18 14:10 WBC RBC Hgb Hct MCV MCH MCHC RDW RDW Differential Plt Count MPV Neut % (Auto) Absolute Neuts (auto) Absolute Lymphs (auto) Total Counted Neutrophils % (Manual) Band Neutrophils % Lymphocytes % (Manual) Monocytes % (Manual) Diff Path Review Platelet Estimate Polychromasia Anisocytosis Schistocytes Absolute Retic Sodium Potassium Chloride Carbon Dioxide Anion Gap BUN Creatinine Estim Creat Clear Calc Est GFR (MDRD) Af Amer Est GFR (MDRD) Non-Af BUN/Creatinine Ratio Glucose Lactic Acid Calcium Total Bilirubin AST ALT Alkaline Phosphatase Total Protein Albumin Globulin Albumin/Globulin Ratio Lipase Urine Color Yellow Urine Clarity Sl. Cloudy Urine pH 5.0 Ur Specific [place] 1.020 Urine Protein 30 H Urine Glucose (UA) Normal Urine Ketones 5 H Urine Occult Blood 25 H Urine Nitrite Negative Urine Bilirubin 1 H Urine Urobilinogen 1 H Ur Leukocyte Esterase 25 H Urine RBC 0-5 SEEN Urine WBC 0-5 SEEN Ur Squamous Epith Cells 0-5 SEEN Urine Bacteria 0 SEEN Urine Mucus 0 SEEN Assessment/Plan All Active Problems Abdominal pain (Acute) Hydronephrosis, right (Acute) Anemia (Acute) Left flank pain (Acute) Narcotic induced constipation (Acute) #1 opioid induced severe constipation-patient will be placed in observation status on PCU, he will be given GoLYTELY, again I asked his to request he be given a prescription for lactulose at the time of his discharge from the hospital, she is going to ask his PCP or oncologist about some of the medications for opioid-induced constipation such as Movantik #2 metastatic prostate cancer #3 right hydronephrosis-I spoke briefly to by phone today, he states that it is not uncommon to still have some hydronephrosis after placing a stent, patient will follow up with urology as an outpatient #4 left flank pain-probably secondary to constipation and metastatic prostate cancer #5 anemia of chronic disease-I spoke with the patient's oncologist today, his last hemoglobin was in the 9.5 range. Code Visit OBSV E&M: 59909 Initial observation care L3
[2018-12-27 22:56] VITALS: BMI 24.4
[2018-12-27] MEDS: Tamsulosin HCl 0.4 MG Capsule PO (23:25)
[2018-12-27] MEDS: Electrolyte Solution/Peg's 4000 ML PO (23:25)
[2018-12-28 03:41] VITALS: BP 162/71; PULSE 95; RESP 18; TEMP 36.9; O2SAT 93
--- NOTE | 2018-12-28 07:25 | PCM.PN.HOSP ---
Patient Problems: Active and Suspected Problems Hydronephrosis, right (Acute) Anemia (Acute) Left flank pain (Acute) Narcotic induced constipation (Acute) Subjective: Patient with small very firm hard stool this morning following ongoing attempts for GoLYTELY intake. He notes some improvement following but still ongoing abdominal discomfort and hemorrhoidal pain. Discussed current status and difficulty given chronic pain issues with metastatic cancer and amenable to ongoing GoLYTELY trial. Upon discharge discussed options for lactulose versus Amitiza. Patient denies fevers, chills, nausea, emesis, chest pain or dyspnea. Objective: Physical Examination: General: awake, alert, oriented x 3 and cooperative, seated upright in bed, mildly uncomfortable with examination but otherwise notes pain has been mildly lessens. Skin: normal color, turgor, no icterus, cyanosis. HEENT: AT/NC, EOMI, PERRLA, MMM. Lungs: CTA bilaterally, moderate effort, mild decrease BL bases, no rales, ronchi or wheezing. Heart: Regular rate and rhythm; no gallop, rub audible. Abdomen: Soft, mildly firm, generalized discomfort with deep palpation attempts, mildly distended, mildly hyperactive bowel sounds. Extremities: no cyanosis, clubbing, BL LE pedal to mid degroot, minimally pitting edema. Neurological: patient awake, alert, oriented x 3; cognitive function intact; pupils equally reactive to light and accomodation; cranial nerves II-XII grossly normal, moving all 4 extremities, no focal deficits, strength severely global decrease secondary to acute presentation. Psychiatric: affect appears fatigued, no acute evidence of depressive or anxiety feelings. Vitals/I&O's: Vital Signs Temp Pulse Resp BP Pulse Ox 98.5 F 95 18 162/71 H 93 12/28/18 03:41 12/28/18 03:41 12/28/18 03:41 12/28/18 03:41 12/28/18 03:41 Oxygen Delivery Method Room Air Weight: 165 lb 9.074 oz Body Mass Index (BMI) 24.4 Intake and Output for Last 24 Hours 12/26/18 12/27/18 12/28/18 23:59 23:59 23:59 Intake Total 240 / 240 1999 / 1999 Output Total 150 / 150 Balance 240 / 240 1850 / 1850 Laboratory Results 12/27/18 13:20: WBC 9.0, RBC 2.65 L, Hgb 8.5 L, Hct 26.6 L, MCV 100.4 H, MCH 32.1 H, MCHC 32.0, RDW 18.5 H, RDW Differential 67.6 H, Plt Count 112 L, MPV 10.8, Neut % (Auto) Not Reportable, Absolute Neuts (auto) 7.7, Absolute Lymphs (auto) 0.90, Total Counted 100, Neutrophils % (Manual) 79 H, Band Neutrophils % 7 H, Lymphocytes % (Manual) 10 L, Monocytes % (Manual) 4, Diff Path Review February, Platelet Estimate SLT DEC, Polychromasia 1+, Anisocytosis 2+, Schistocytes RARE, Absolute Retic 3.07 12/27/18 13:20: Sodium 140, Potassium 3.4 L, Chloride 110 H, Carbon Dioxide 24.0, Anion Gap 6, BUN 12, Creatinine 0.96, Estim Creat Clear Calc 79.78, Est GFR (MDRD) Af Amer 102, Est GFR (MDRD) Non-Af 85, BUN/Creatinine Ratio 12.5, Glucose 89, Calcium 7.9 L, Total Bilirubin 0.60, AST 32, ALT 23, Alkaline Phosphatase 496 H, Total Protein 6.6, Albumin 3.3, Globulin 3.3, Albumin/Globulin Ratio 1.0, Lipase 339 12/27/18 14:00: Lactic Acid 1.1 12/27/18 14:10: Urine Color Yellow, Urine Clarity Sl. Cloudy, Urine pH 5.0, Ur Specific [place] 1.020, Urine Protein 30 H, Urine Glucose (UA) Normal, Urine Ketones 5 H, Urine Occult Blood 25 H, Urine Nitrite Negative, Urine Bilirubin 1 H, Urine Urobilinogen 1 H, Ur Leukocyte Esterase 25 H, Urine RBC 0-5 SEEN, Urine WBC 0-5 SEEN, Ur Squamous Epith Cells 0-5 SEEN, Urine Bacteria 0 SEEN, Urine Mucus 0 SEEN Current Medications Aspirin (Ecotrin) 81 mg PO DAILY@0800 [facility] Enoxaparin Sodium (Lovenox) 40 mg SC DAILY@1000 [facility] Methadone HCl () 5 mg PO BID@0600,1400 [facility] Last Admin: 12/28/18 06:12 Dose: 5 mg Methadone HCl () 10 mg PO QHS [facility] Last Admin: 12/27/18 23:25 Dose: 10 mg Nutritional Formula (Lactose Free) (Ensure Clear) 120 ml PO 4X/DAY [facility] Pantoprazole Sodium (Protonix) 40 mg PO DAILY [facility] Prednisone () 40 mg PO DAILYCM [facility] Sodium Chloride () 5 - 15 ml IV UD PRN PRN Reason: SALINE FLUSH Tamsulosin HCl (Flomax) 0.4 mg PO QHS [facility] Last Admin: 12/27/18 23:25 Dose: 0.4 mg Medical Necessity - Tobacco Use Smoking Status: Current every day smoker Tobacco Use: Secondhand Assessment/Plan All Active Problems Abdominal pain (Acute) Hydronephrosis, right (Acute) Anemia (Acute) Left flank pain (Acute) Narcotic induced constipation (Acute) The patient is a 63 y/o M w/ PMHx: Metastatic prostate CA on chronic methadone therapy, BPH, GERD who presents to the [facility] ED on 12/27/18 with history of primarily left flank discomfort and severe constipation with no bowel movement nearly 10 days with ongoing chronic methadone usage secondary to chronic pain with metastatic prostate cancer. (1) Acute on Chronic Opiate Induced Severe Constipation: Maintain on MedSurg status, continue GoLYTELY prep, mildly effective, encouraged continued intake, plan transition following to Amitiza versus lactulose upon discharge with possible need to have prior authorization performed. Additionally may consider Movantik as possible regimen which may need to be prescribed per patient oncologist. (2) Incidental Right Hydronephrosis: ED evaluation with CT abdomen and pelvis demonstrating a progressive right hydronephrosis with progressive enlargement of the retroperitoneal lymphadenopathy with stable hepatic cysts and stable osteoblastic metastases. Upon presentation patient was discussed with patient urologist, Dr. Laguerre and he confirmed common to have some hydronephrosis following stent placement and will plan urology follow-up as outpatient. (3) Left flank pain: No obvious source on CT abdomen and pelvis urinalysis with no obvious infection, felt likely secondary to constipation and patient underlying metastatic prostate cancer. Continue treatment as noted #1. (4) Metastatic prostate cancer: Continue home leuprolide, prednisone regimen. (5) DVT prophylaxis: SCD, Lovenox. Code Visit OBSV E&M: 01002 Subsequent observation care L2
[2018-12-28 09:46] VITALS: BP 153/87; PULSE 108; RESP 18; TEMP 37.6; O2SAT 94
[2018-12-28] MEDS: Aspirin E.C. 81 MG Tablet PO (09:49)
[2018-12-28] MEDS: predniSONE 20 MG Tablet 40 MG PO (09:49)
[2018-12-28] MEDS: Enoxaparin 40 MG/0.4 ML Syringe SC (09:49)
[2018-12-28] MEDS: Pantoprazole Sodium 40 MG Tablet PO (09:49)
[2018-12-28] MEDS: Ensure Clear 120 ML Liquid PO ×3 (09:54→21:30)
[2018-12-28 12:38] LABS: Pathologist Review Reviewed
--- NOTE | 2018-12-28 15:06 | CASEMGMT ---
Patient has a Healthcare POA on file, but no Healthcare LW. Genie GAR RELIABILITY TECHNOLOGIST
[2018-12-28 15:11] VITALS: BP 141/83; PULSE 89; RESP 17; TEMP 36.6; O2SAT 98
--- NOTE | 2018-12-28 16:45 | CHAPLAIN ---
Type of Pastoral Visit _x__ Initial Visit ___ Follow-up Visit ___ On-call Visit ___ General Patient Visit ___ Spiritual Assessment ___ Family Conference ___ Bereavement ___ Rapid Response ___ Code Blue ___ Other (describe below) Pastoral Care Referral From _x__ Patient ___ Family ___ Nurse ___ Physician ___ Behavioral Health Therapist ___ Refinery Process Engineer ___ Other (describe below) Sacrament/Intervention _x__ Active listening ___ Anointing ___ Samaritan ___ Bereavement ___ Communion x___ Dominga exploration ___ ___ Life review _x__ Prayer ___ Reconciliation ___ Sacrament of Sick _x__ Supportive presence ___ Wedding ___ Other (describe below) Pastoral Comments
[2018-12-28 20:30] VITALS: BP 167/86; PULSE 88; RESP 18; TEMP 36.8; O2SAT 100
[2018-12-28] MEDS: Tamsulosin HCl 0.4 MG Capsule PO (21:30)
[2018-12-28] MEDS: Hydrocortisone 25 MG Suppository RECTAL (21:31)
[2018-12-29] VITALS (9 sets, daily range): BP systolic 142–182; BP diastolic 76–97; PULSE 73–98; RESP 14–18; TEMP 36.7–36.9; O2SAT 95–100
--- NOTE | 2018-12-29 06:43 | PCM.PN.HOSP ---
Patient Problems: Active and Suspected Problems Hydronephrosis, right (Acute) Anemia (Acute) Left flank pain (Acute) Narcotic induced constipation (Acute) Subjective: Patient with improvement overnight with recurrent stools, now soft and some liquid. Moving with greater ease, abdomen more soft. Discussed discharge medication planning including lactulose and possibly Amitiza if affordable. Did discuss patient with patient's oncologist and agreed with plan of care. Patient denies fevers, chills, nausea, emesis, recurrent abdominal pain, chest pain or dyspnea. Objective: Physical Examination: General: awake, alert, oriented x 3 and cooperative, seated upright in bed, comfortable appearing, smiling, more interactive. Skin: normal color, turgor, no icterus, cyanosis. HEENT: AT/NC, EOMI, PERRLA, MMM. Lungs: CTA bilaterally, moderate effort, mild decrease BL bases, no rales, ronchi or wheezing. Heart: Regular rate and rhythm; no gallop, rub audible. Abdomen: Soft, much less firm than day prior, generalized discomfort has markedly lessened, nondistended, hyperactive bowel sounds still present. Extremities: no cyanosis, clubbing, BL LE pedal to mid degroot edema resolved, Ty wraps currently in place. Neurological: patient awake, alert, oriented x 3; cognitive function intact; pupils equally reactive to light and accomodation; cranial nerves II-XII grossly normal, moving all 4 extremities, no focal deficits, strength improved, remains moderately to severely global decrease secondary to acute presentation and underlying comorbidities. Psychiatric: affect appears improved, cheerful, no acute evidence of depressive or anxiety feelings. Vitals/I&O's: Vital Signs Temp Pulse Resp BP Pulse Ox 98.4 F 92 18 148/78 H 96 12/29/18 02:30 12/29/18 02:30 12/29/18 02:30 12/29/18 02:30 12/29/18 02:30 Oxygen Delivery Method Room Air Weight: 165 lb 9.074 oz Body Mass Index (BMI) 24.4 Intake and Output for Last 24 Hours 12/27/18 12/28/18 12/29/18 23:59 23:59 23:59 Intake Total 240 / 240 2925 / 2925 420 / 420 Output Total 250 / 250 450 / 450 Balance 240 / 240 2675 / 2675 -30 / -30 Laboratory Results 12/27/18 13:20: Diff Path Review Reviewed Current Medications Aspirin (Ecotrin) 81 mg PO DAILY@0800 [facility] Last Admin: 12/28/18 09:49 Dose: 81 mg Enoxaparin Sodium (Lovenox) 40 mg SC DAILY@1000 [facility] Last Admin: 12/28/18 09:49 Dose: 40 mg Hydrocortisone Acetate (Anusol Hc) 25 mg RECTAL TID PRN PRN PRN Reason: hemorrhoidal pain Last Admin: 12/28/18 21:31 Dose: 25 mg Methadone HCl () 5 mg PO BID@0600,1400 [facility] Last Admin: 12/29/18 05:38 Dose: 5 mg Methadone HCl () 10 mg PO QHS [facility] Last Admin: 12/28/18 21:30 Dose: 10 mg Nutritional Formula (Lactose Free) (Ensure Clear) 120 ml PO 4X/DAY [facility] Last Admin: 12/28/18 21:30 Dose: 120 ml Pantoprazole Sodium (Protonix) 40 mg PO DAILY [facility] Last Admin: 12/28/18 09:49 Dose: 40 mg Prednisone () 40 mg PO DAILYCM [facility] Last Admin: 12/28/18 09:49 Dose: 40 mg Sodium Chloride () 5 - 15 ml IV UD PRN PRN Reason: SALINE FLUSH Tamsulosin HCl (Flomax) 0.4 mg PO QHS [facility] Last Admin: 12/28/18 21:30 Dose: 0.4 mg Medical Necessity - Tobacco Use Smoking Status: Current every day smoker Tobacco Use: Secondhand Assessment/Plan All Active Problems Abdominal pain (Acute) Hydronephrosis, right (Acute) Anemia (Acute) Left flank pain (Acute) Narcotic induced constipation (Acute) The patient is a 63 y/o M w/ PMHx: Metastatic prostate CA on chronic methadone therapy, BPH, GERD who presents to the [facility] ED on 12/27/18 with history of primarily left flank discomfort and severe constipation with no bowel movement nearly 10 days with ongoing chronic methadone usage secondary to chronic pain with metastatic prostate cancer. (1) Acute on Chronic Opiate Induced Severe Constipation: Maintain MS, completed GoLYTELY prep, effective, transitioned to BID lactulose which will be continued upon discharge, will additionally plan to given rx for Amitiza versus lactulose upon discharge with pending CM/SW assisted prior authorization. Additionally discussed consideration Movantik as possible regimen if needed with patient Oncologist. Will plan discharge to home following PRBC administration. Discussed with patient and spouse, will refer to Palliative upon discharge. (2) Acute on Chronic Anemia, Macrocytic: Admission Hgb 8.5, repeat 12/29/18 Hgb 7.3, baseline 10-11, will administer 2 u PRBC per discussion with Dr. Pandey. (3) Incidental Right Hydronephrosis: ED evaluation with CT abdomen and pelvis demonstrating a progressive right hydronephrosis with progressive enlargement of the retroperitoneal lymphadenopathy with stable hepatic cysts and stable osteoblastic metastases. Upon presentation patient was discussed with patient urologist, Dr. Laguerre and he confirmed common to have some hydronephrosis following stent placement and will plan urology follow-up as outpatient. (4) Left flank pain: No obvious source on CT abdomen and pelvis urinalysis with no obvious infection, felt likely secondary to constipation and patient underlying metastatic prostate cancer. Continue treatment as noted #1. Discussed with patient and spouse, will refer to Palliative upon discharge. (5) Metastatic prostate cancer: Continue home leuprolide, prednisone regimen. (6) DVT prophylaxis: SCD, Lovenox.
[2018-12-29] MEDS: 0.9% NaCl Peripheral Flush Adult/Peds IV ×4 (07:16→21:50)
[2018-12-29 07:48] LABS: ALB/GLOB Ratio 1.1 RATIO (0.9-2.4); AST(SGOT) 26 U/L (15-37); Alanine Aminotransfer ALT/SGPT 24 U/L (16-61); Albumin, Serum 3.1 g/dL (3.2-5.0); Alkaline Phosphatase 432 U/L (45-117); Anion Gap 6 (5-15); BUN 11 mg/dL (7-18); BUN/Creat Ratio 12.4 RATIO (10-20); Calcium,Total 7.8 mg/dL (8.5-10.1); Chloride 112 mmol/L (98-107); Creatinine, Serum 0.88 mg/dL (0.70-1.30); EST Glomerular Filtration Rate 93 mL/min (>60); Est Glom Filt Rate - Afr Amer 112 mL/min (>60); Estimated Creatinine Clearance 87.04 ml/min; Globulin 2.9 g/dL (2.2-4.2); Glucose 91 mg/dL (74-106); Potassium 3.5 mmol/L (3.5-5.1); Sodium Level 143 mmol/L (136-145)
[2018-12-29 07:58] LABS: Hemoglobin 7.3 g/dl (13.0-16.5); Mean Corp Hgb Conc 31.7 g/gl (32-36); Mean Corpuscular Hgb 31.7 pg (27.0-32.0); Platelet Count 99 K/mm3 (150-450); RBC Distribution Width CV 18.5 % (11.6-14.6); RBC Distribution Width SD 67.2 fl (35.1-43.9)
[2018-12-29 07:59] LABS: Differential Indicated MANUAL DIFF; POSITIVE COUNT YES; POSITIVE DIFFERENTIAL NO; POSITIVE MORPHOLOGY YES
[2018-12-29] MEDS: Aspirin E.C. 81 MG Tablet PO (08:02)
[2018-12-29] MEDS: predniSONE 20 MG Tablet 40 MG PO (08:02)
[2018-12-29] MEDS: Pantoprazole Sodium 40 MG Tablet PO (08:02)
[2018-12-29 08:10] LABS: Lymphocyte 13 % (19-41); Metamyelocyte 10 % (0-1); Monocyte 3 % (0-10); Neutrophil-Band 2 % (0-5); Neutrophil-Segmented 72 % (47-70); Nucleated Red Bld Cells,Manual 25 % (0-5); Total Cells Counted 100 (MANUAL DIFF)
[2018-12-29 08:11] LABS: Anisocytosis 3+
[2018-12-29 08:12] LABS: Hypochromasia 1+; Polychromasia 1+
[2018-12-29 08:13] LABS: Schistocytes 1+; Tear Drop Cell 1+
[2018-12-29 08:14] LABS: Absolute Neutrophil Count 4.4 X10^3/uL (2.0-7.7); Lymphocyte # 0.78 X10^3/ul (4.0); Neutrophil # 4.44 X10^3/uL (2.7-7.7)
[2018-12-29 08:15] LABS: Absolute Lymphocyte Count 0.78 X10^3/ul (0.83-4.51)
--- NOTE | 2018-12-29 09:18 | NURSING ---
introduced self to pt. informed him that i need to draw some more blood to send for a cross and screen d/t HGB 7.[address] Julien has ordered 2units of blood.. pt wanting Dr. Pandey called prior to this d/t levels have been running low and Dr. Pandey was ok with them b/c of the treatment he is having form his cancer.. informed i would let Dr. Julien know.
--- NOTE | 2018-12-29 09:58 | DCINST_ITS ---
- Discharge Diagnoses Current Active Problems: Current Active and Chronic Problems (1) Acute on Chronic Opiate Induced Severe Constipation (2) Acute on Chronic Anemia, Macrocytic (3) Incidental Right Hydronephrosis (4) Left flank pain, No obvious source on CT abdomen and pelvis urinalysis with no obvious infection, felt likely secondary to constipation and patient underlying metastatic prostate cancer (5) Metastatic prostate cancer You will use the following diet at home:: High fiber Your food should be the consistency of: Regular Your liquids should be the consistency of: Regular/Thin Discharge Activity: May not drive while taking narcotic pain medications., - - Encouraged regular ambulation assist with avoidance of constipation. Weight Bearing Status: Weight bearing as tolerated Call your doctor if you observe: Fever of 101 or Higher, Inability to urinate, Inability to have a bowel movement, Shortness of breath, Dizziness, Fainting spells, Chest pain, Uncontrolled pain Instructions: ED Constipation, ED Abdominal Pain Unkn Cause Male Additional Instructions: You have been given a prescription for lactulose. Please continue this regimen but hold if onset serial loose stools. Goal to have 1-2 soft bowel movements daily. Attempting at discharge to obtain prior authorization for affordability of Amitiza. If this is a cost affordable option would then recommend transitioning to usage of Amitiza scheduled and could use the lactulose as needed or both scheduled if necessary. Discussed consideration of additional regimen Movantik with Dr. Pandey which would be arranged if this new regimen is not effective. It is very important to maintain appropriate water intake. Allergies/Adverse Reactions: Allergies aspirin Adverse Reaction (Verified 12/27/18 11:52) Upset Stomach Medications to take at Discharge Ergocalciferol (Vitamin D2) [Drisdol] 50,000 unit PO MO 07/20/18 Leuprolide Acetate [Eligard] 22.5 mg SQ UD 07/20/18 Methadone HCl 5 mg PO BID 11/29/18 Methadone HCl 10 mg PO QHS 11/29/18 Tamsulosin HCl [Flomax] 0.4 mg PO QHS 11/29/18 Aspirin E.C. [Ecotrin] 81 mg PO DAILY@0800 12/27/18 Omeprazole 40 mg PO DAILY 12/27/18 Promethazine HCl 25 mg PO PRN PRN 12/27/18 Sennosides [Senna] 17.2 mg PO BID PRN PRN 12/27/18 predniSONE tablet 40 mg PO DAILY 12/27/18 Hydrocortisone [Anusol Hc] 25 mg RECTAL TID PRN PRN #20 suppos. 12/29/18 Lactulose [Chronulac] 20 gm PO BID 30 Days #1 bottle 12/29/18 Lubiprostone [Amitiza] 24 mcg PO BID #60 capsule 12/29/18 The following prescriptions were given: Hydrocortisone [Anusol Hc] 25 mg RECTAL TID PRN PRN #20 suppos. PRN Reason: hemorrhoidal pain Lactulose [Chronulac] 20 gm PO BID 30 Days #1 bottle Lubiprostone [Amitiza] 24 mcg PO BID #60 capsule Primary Care Physician: Brenda Feliz MD [Primary Care Provider] - Please follow up with your Primary Care Physician in: Follow-up within 3-5 days to review admission. Test Results: Test results from this visit will be discussed in further detail at your follow- up appointment, if applicable. Please Follow Up With: Fernando Pandey DO When: Office will call to arrange follow-up, call if they have not in 1-2 days. Proposed Discharge Date: 12/29/18
[2018-12-29] MEDS: Ensure Clear 120 ML Liquid PO ×2 (10:09→15:35)
[2018-12-29] MEDS: Lactulose 20 GM/30 ML UDC PO ×2 (10:14→21:35)
--- NOTE | 2018-12-29 10:30 | PCM.DC.SUM ---
Discharge Date and Diagnosis - Problem List Patient Problems: Active and Suspected Problems Hydronephrosis, right (Acute) Anemia (Acute) Left flank pain (Acute) Narcotic induced constipation (Acute) Date of Admission: 12/27/18 Date of Discharge: 12/29/18 - Primary Discharge Diagnosis Active and Suspected Problems (1) Acute on Chronic Opiate Induced Severe Constipation (2) Acute on Chronic Anemia, Macrocytic (3) Incidental Right Hydronephrosis (4) Left flank pain, felt likely secondary to constipation and patient underlying metastatic prostate cancer. Continue treatment as noted #1. Discussed with patient and spouse, will refer to Palliative upon discharge. (5) Metastatic prostate cancer - Secondary Discharge Diagnosis Chronic Problems Prostate cancer metastatic to bone (Chronic) Hospital Course and Treatment Operations: None Procedures: Blood transfusion Summary of Care Provided: The patient is a 63 y/o M w/ PMHx: Metastatic prostate CA on chronic methadone therapy, BPH, GERD who presented to the [facility] ED on 12/27/18 with history of primarily left flank discomfort and severe constipation with no bowel movement nearly 10 days with ongoing chronic methadone usage secondary to chronic pain with metastatic prostate cancer. ED evaluation with CT abdomen pelvis with progressive right hydronephrosis and progressive enlargement of the retroperitoneal lymphadenopathy with stable hepatic cyst and stable osteoblastic metastases with evidence constipation. Admitted to MS status, completed GoLYTELY prep, effective, transitioned to BID lactulose continued upon discharge w/ rx for Amitiza upon discharge with pending CM/SW assisted prior authorization at discharge. Additionally discussed consideration Movantik as possible regimen if needed with patient Oncologist. Admission Hgb 8.5, repeat 12/29/18 Hgb 7.3, baseline 10-11, will administer 2 u PRBC per discussion with Dr. Pandey. As noted, ED CT abdomen and pelvis demonstrating a progressive right hydronephrosis with progressive enlargement of the retroperitoneal lymphadenopathy with stable hepatic cysts and stable osteoblastic metastases. Upon presentation patient was discussed with patient urologist, Dr. Laguerre and he confirmed common to have some hydronephrosis following stent placement we will continue to follow with urology as outpatient. Patient amenable to referral to palliative care upon discharge with possible transition once acceptance achieved to hospice. Additionally requested follow-up with patient primary care physician and plan to follow-up with oncologist with plans office to call him with appointment. Patient Problems: Active and Suspected Problems Hydronephrosis, right (Acute) Anemia (Acute) Left flank pain (Acute) Narcotic induced constipation (Acute) - Physical Exam Vital Signs Temp Pulse Resp BP Pulse Ox 98.2 F 87 18 149/84 H 98 12/29/18 08:21 12/29/18 08:21 12/29/18 08:21 12/29/18 08:21 12/29/18 08:21 Oxygen Delivery Method Room Air Weight: 165 lb 9.074 oz Body Mass Index (BMI) 24.4 Intake and Output for Last 24 Hours 12/27/18 12/28/18 12/29/18 23:59 23:59 23:59 Intake Total 240 / 240 2925 / 2925 420 / 420 Output Total 250 / 250 450 / 450 Balance 240 / 240 2675 / 2675 -30 / -30 Laboratory Tests Past 24 Hrs 12/27/18 12/29/18 12/29/18 13:20 07:25 07:25 WBC WHEAT SHIPPER Corrected WBC 6.0 RBC 2.30 L Hgb 7.3 L Hct 23.0 L MCV 100.0 H MCH 31.7 MCHC 31.7 L RDW 18.5 H RDW Differential 67.2 H Plt Count 99 L MPV 10.0 Neut % (Auto) Not Reportable Absolute Neuts (auto) 4.4 Absolute Lymphs (auto) 0.78 L Total Counted 100 Neutrophils % (Manual) 72 H Band Neutrophils % 2 Lymphocytes % (Manual) 13 L Monocytes % (Manual) 3 Metamyelocytes % 10 H Nucleated RBCs/100 WBC 25 H Diff Path Review Reviewed May foll Polychromasia 1+ Hypochromasia 1+ Anisocytosis 3+ Tear Drop Cells 1+ Schistocytes 1+ Sodium 143 Potassium 3.5 Chloride 112 H Carbon Dioxide 25.0 Anion Gap 6 BUN 11 Creatinine 0.88 Estim Creat Clear Calc 87.04 Est GFR (MDRD) Af Amer 112 Est GFR (MDRD) Non-Af 93 BUN/Creatinine Ratio 12.4 Glucose 91 Calcium 7.8 L Total Bilirubin 0.60 AST 26 ALT 24 Alkaline Phosphatase 432 H Total Protein 6.0 L Albumin 3.1 L Globulin 2.9 Albumin/Globulin Ratio 1.1 Folate 12/29/18 07:25 WBC Corrected WBC RBC Hgb Hct MCV MCH MCHC RDW RDW Differential Plt Count MPV Neut % (Auto) Absolute Neuts (auto) Absolute Lymphs (auto) Total Counted Neutrophils % (Manual) Band Neutrophils % Lymphocytes % (Manual) Monocytes % (Manual) Metamyelocytes % Nucleated RBCs/100 WBC Diff Path Review Polychromasia Hypochromasia Anisocytosis Tear Drop Cells Schistocytes Sodium Potassium Chloride Carbon Dioxide Anion Gap BUN Creatinine Estim Creat Clear Calc Est GFR (MDRD) Af Amer Est GFR (MDRD) Non-Af BUN/Creatinine Ratio Glucose Calcium Total Bilirubin AST ALT Alkaline Phosphatase Total Protein Albumin Globulin Albumin/Globulin Ratio Folate 6.80 Discharge Activity: May not drive while taking narcotic pain medications., - - Encouraged regular ambulation assist with avoidance of constipation. Weight Bearing Status: Weight bearing as tolerated Call your doctor if you observe: Fever of 101 or Higher, Inability to urinate, Inability to have a bowel movement, Shortness of breath, Dizziness, Fainting spells, Chest pain, Uncontrolled pain Home Medications: Medications to take at Discharge Ergocalciferol (Vitamin D2) [Drisdol] 50,000 unit PO MO 07/20/18 Leuprolide Acetate [Eligard] 22.5 mg SQ UD 07/20/18 Methadone HCl 5 mg PO BID 11/29/18 Methadone HCl 10 mg PO QHS 11/29/18 Tamsulosin HCl [Flomax] 0.4 mg PO QHS 11/29/18 Aspirin E.C. [Ecotrin] 81 mg PO DAILY@0800 12/27/18 Omeprazole 40 mg PO DAILY 12/27/18 Promethazine HCl 25 mg PO PRN PRN 12/27/18 Sennosides [Senna] 17.2 mg PO BID PRN PRN 12/27/18 predniSONE tablet 40 mg PO DAILY 12/27/18 Hydrocortisone [Anusol Hc] 25 mg RECTAL TID PRN PRN #20 suppos. 12/29/18 Lactulose [Chronulac] 20 gm PO BID 30 Days #1 bottle 12/29/18 Lubiprostone [Amitiza] 24 mcg PO BID #60 capsule 12/29/18 Following Prescrptions Were Given to Patient: Hydrocortisone [Anusol Hc] 25 mg RECTAL TID PRN PRN #20 suppos. PRN Reason: hemorrhoidal pain Lactulose [Chronulac] 20 gm PO BID 30 Days #1 bottle Lubiprostone [Amitiza] 24 mcg PO BID #60 capsule Primary Care Physician: Brenda Feliz MD [Primary Care Provider] - Please follow up with your Primary Care Physician in: Follow-up within 3-5 days to review admission. Please Follow Up With: Fernando Pandey DO When: Office will call to arrange follow-up, call if they have not in 1-2 days. Patient Instructions: ED Constipation, ED Abdominal Pain Unkn Cause Male Disposition: Home Minutes spent on discharge:: 35 Patient Condition:: Stable Medical Necessity - Tobacco Use Smoking Status: Current every day smoker Tobacco Use: Secondhand Meaningful Use Info Meaningful Use Diagnoses (Choose all that apply): None applicable Code Visit OBSV E&M: 49037 Observation care discharge
--- NOTE | 2018-12-29 10:44 | CASEMGMT ---
Addendum entered by Hua Guy 12/29/18 12:33: Discussed options for purchase of tub bench. Per [facility] they do not supply, and does not require prescription. [facility] does carry. Family member will look into purchase after they return home. Holly COBURN RN AC Original Note: Addendum entered by Hua Guy 12/29/18 11:20: Dr. Julien completed appeal letter with description of pt's condition clarifying pt does not have obstruction, but has severe constipation from narcotic use which will continue due to his metastatic cancer. Pt updated and per Dr. Julien, will fill lactulose prescription for now. Holly COBURN RN AC Original Note: RN CM Note: Per Dr. Julien, Amitiza 24 mcg capsules BID is being prescribed on dc. Per [facility] pharmacy- prior authorization is required. [facility] Prior auth phone: # Rep: Fátima Medication: Amitiza 24 mcg capsules BID, quantity 60 Pt's ID: [id number] Request for prior auth completed via phone. Medication was denied- Dr. Julien to complete expedited appeal for medication. Holly COBURN RN AC
[2018-12-29 11:25] LABS: Vitamin B12 682 pg/mL (211-911)
--- NOTE | 2018-12-29 13:05 | CASEMGMT ---
Social Work Note CINTIA met with pt and pt's Rosalia present in room. Pt gave this worker permission to speak to him in front of his guest. SW asked pt and Rosalia about Palliative Care Referral. Pt and Rosalia agreeable to Palliative Care Referral. Pt states that he lives in [place]. SW explained that this worker is unsure if [facility] goes to [place] [place] [facility] but if not this worker will find agencies that provide Palliative Care Services to [facility]. Pt and Rosalia state understanding. SW reviewed Hospice agencies that serve [facility]. Agencies include [facility], [facility], [facility], and [facility]. SW updated pt and pt's on agencies. Pt and pt's states choices are as followed for preferences 1. [facility], 2. [facility], and 3. [facility]. Rosalia states [facility] isn't that great and she doesn't want to use their services. SW explained that this worker will call agencies to confirm if they are able to provide Palliative Care services. Pt and Rosalia state understanding. Rosalia informed this worker to have Palliative Care call her to arrange appointment ([phone]). CINTIA placed a call to [facility] and spoke with JUSTIN Cano who states they are not certified for Palliative Care. CINTIA placed a call to [facility] and spoke with JUSTIN Jose. Rebeca confirms that they provide Palliative Care and will go to [facility]. Rebeca provide fax number [phone] and per Rebeca a customer solutions teammate for Palliative Care will contact pt's tomorrow. SW faxed referral to Rebeca at [facility]. CINTIA also placed a call to [facility] and spoke with Nicole. Nicole states that they provide Palliative Care on a case to case basis, they don't officially have a Palliative Care program but they have a contract with [facility] who can provide Palliative Care, and would be willing to speak with pt and Rosalia in regards to services offered. Nicole provided direct number [phone]. CINTIA updated pt and Rosalia that [facility] are not certified for Palliative Care Services, that [facility] will be calling Rosalia tomorrow to discuss Palliative Care and provided Rosalia with Nicole at [facility] direct number. Pt and Rosalia state understanding. Plan: Pt to discharge home with Palliative Care Nicole Garcia [employer]INCIPAL, INFORMATION TECHNOLOGY INSTRUCTOR
[2018-12-29 14:42] LABS: Pathologist Review Reviewed
[2018-12-29] MEDS: Tamsulosin HCl 0.4 MG Capsule PO (21:35)
[2018-12-29] MEDS: 0.9% NaCl VAD Flush 10 ML IV (21:50)
[2018-12-31 07:31] LABS: NRBC Flagged by Analyzer 34.1 % (0-5)
[2018-12-31 07:31] LABS: Corrected WBC 7.6 K/mm3 (4.4-11.0)
== END 2018-12-29 22:30 | disposition home or self-care (01) ==
LOC: ED 16:26 → MS3 16:58 → PCU 21:41 → MS2 12-28 15:29
PROVIDERS: Admitting Provider Internal Medicine; Emergency Provider Emergency Medicine; Family Provider Family Medicine; PCP Family Medicine; Visit Provider Family Medicine
DX: K59.03 Drug induced constipation (principal); N13.30 Unspecified hydronephrosis; T40.2X5A Adverse effect of other opioids, initial encounter; C61 Malignant neoplasm of prostate; C79.51 Secondary malignant neoplasm of bone; D63.8 Anemia in other chronic diseases classified elsewhere; F11.90 Opioid use, unspecified, uncomplicated; G89.3 Neoplasm related pain (acute) (chronic); F17.200 Nicotine dependence, unspecified, uncomplicated; N40.0 Benign prostatic hyperplasia without lower urinary tract symptoms; Z79.899 Other long term (current) drug therapy; Z79.82 Long term (current) use of aspirin; Z79.52 Long term (current) use of systemic steroids; K21.9 Gastro-esophageal reflux disease without esophagitis
CPT/HCPCS: 36430; 36591; 74176; 80053; 81001; 82607; 82746; 83605; 83690; 85025; 86850; 86900; 86920; 86922; 87040; 96372; 96374; 96375; 96376; 97162; 97166; 99218; 99283; J7040; P9016; A4216; G0378